=== PATIENT | male | born 1940 | race Caucasian/White ===

== ENCOUNTER 2023-10-31 19:59 | Inpatient (IN) | payer OTHER, SELFPAY ==
[2023-10-31] VITALS (7 sets, daily range): BP systolic 115–180; BP diastolic 55–90; BMI 22.9
[2023-10-31 16:11] LABS: Hematocrit 46.3 % (39.0-52.0); Hemoglobin 15.6 g/dL (13.0-18.0); Mean Corp Hgb Conc. 33.7 g/dL (33.0-37.0); Mean Corpuscular Hgb 32.3 pg (27.0-31.0); Mean Corpuscular Volume 95.9 fL (80.0-94.0); Mean Platelet Volume 9.8 fL (7.4-10.4); Platelet Count 205 10^3/uL (130-400); Red Blood Cell Count 4.83 10^6/uL (4.70-6.10); Red Cell Dist. Width 12.9 % (11.5-14.5)
[2023-10-31 16:27] LABS: ALT (SGPT) 24 U/L (0-50); AST (SGOT) 35 U/L (17-59); Albumin 4.7 g/dl (3.5-5.0); Alkaline Phosphatase 58 U/L (38-126); Blood Urea Nitrogen 19 mg/dl (9-20); Calcium 10.2 mg/dl (8.4-10.2); Carbon Dioxide 27 mmol/L (22-30); Chloride 102 mmol/L (98-107); Glucose 102 mg/dl (70-99); Potassium 4.7 mmol/L (3.5-5.1); Sodium 137 mmol/L (135-145); Total Bilirubin 3.1 mg/dl (0.2-1.3); Total Protein 7.3 g/dl (6.3-8.2); eGFR > 60.00
[2023-10-31 16:39] LABS: Troponin I 0.125 ng/ml
--- NOTE | 2023-10-31 16:49 | ED.GENMED ---
History of Present Illness
General
Chief Complaint: Chest Pain
Source: patient
Exam Limitations: none
Time Seen by Provider: 10/31/23 15:30
Nursing documentation reviewed up to this point in time: agreed with
Travel History
Have you had any contact with someone who has COVID-19?: No
Do you have any symptoms of coronavirus? Fever > 100 degrees, chills, cough, shortness of breath, sore throat, loss of taste or smell, muscle aches, or headache?: No
History of Present Illness
History of Present Illness:
Patient with history of CAD, multiple cardiac stent placements in the past, presents to ED secondary to intermittent chest pain over the past 2 weeks. Patient is an avid cyclist, who has been experiencing chest discomfort whenever he attempted to
ride his bike over the past 2 weeks. Chest pain described as achy, radiating up to his jaw, without associated shortness of breath, nausea, or diaphoresis. Chest pain would resolved gradually after he stopped cycling. On 1 other occasion, patient
had similar episode when he was outside cutting branches. Otherwise, patient denies any recent illness. Denies any recent travel or surgery.
Past History
Past History
ED Past Medical History: Other (Hypertension, status post ORIF of left hip)
Social History
Tobacco: Non-smoker
Alcohol: None
Family History
Family History: Negative Diabetes, Hypertension or CAD
Review of Systems
Review of Systems
Allergies reviewed?: Yes
All Other Systems: ROS reviewed and negative except as documented in HPI and ROS
Constitutional: Reports no symptoms
EENT: Reports no symptoms
Respiratory: Reports trouble breathing
Cardiac: Reports chest pain
ABD/GI: Reports no symptoms
: Reports no symptoms
Musculoskeletal: Reports no symptoms
Neurological: Reports no symptoms
Phy Exam
Physical Exam
Physical Exam:
Physical Exam
General: no apparent distress, not acutely ill. afebrile
Head: nc/at. eomi
Neck: supple. no meningeal signs.
Heart: s1/s2 regular rate and rhythm, no murmur. equal radial pulses.
Lungs: no acute respiratory distress. clear bilaterally
Abdomen: normal bowel sounds. not tender.
Neuro: alert and oriented. no focal neurological deficits
Skin: no rash
Psychiatric: well kept. interactive and cooperative
Extremities: no edema. no calf tenderness.
Scores
Heart Score for Chest Pain Patients
STEMI patient?: No
History: Moderately Suspicious
ECG: Normal
Age: >/= 65 years
Risk Factors: >/= 3 Risk Factors or History of CAD
Troponin: >1 - <3 x Normal Limit
Heart Score for Chest Pain Patients: 6
Heart Score Risk: 20.3% MACE over next 6 weeks
Course
Orders/Labs/Results
Orders:
Orders
10/31/23 13:00
Electrocardiogram (*1) Urgent
Reason for Study: Chest Pain
EKG- Treatment ONCE
10/31/23 Dinner
Regular
At Your Request: Full Participation
10/31/23 16:05
Complete Blood Count/No Diff Urgent
Comprehensive Metabolic Panel Urgent
Troponin I Urgent
10/31/23 17:07
PTT Urgent
10/31/23 18:16
Aspirin Chewable [Low Strength Aspirin] 243 mg PO NOW STA
10/31/23 18:17
Heparin 4,000 units IV NOW STA
Nursing to Place Non Medication Order As Directed
Physician Order: PTT 6 hours after initial start of Heparin infusion
Above order entered?: Yes
10/31/23 18:30
Heparin 51412 Units/250 ml 25,000 units in 250 ml IV PER PROTOCOL
Weight to be used for heparin protocol in kilograms (kg):: 73.7
Protocol:: Cardiac Tx/Acute Coronary
PTT Goal Range to be used:: PTT 73 to 111 seconds
Order type:: Initial
INITIAL Infusion Dose (UNITS/KG/hr) & then follow protocol:: 12 units/kg/hr
Infusion Dose in UNITS/hr & then follow protocol (UNITS/hr):: 900
INFUSION RATE in mL/hr & then follow protocol (mL/hr):: 9
PTT less than or equal to 64 seconds:: Increase rate by 200 units/hr (+ 2 mL/hr)
PTT 64.1 to 72.9 seconds:: Increase rate by 100 units/hr (+ 1 mL/hr)
PTT 73 to 111 seconds:: Target Range. No change in rate.
PTT 111.1 to 130.9 seconds:: Decrease rate by 100 units/hr (- 1 mL/hr)
PTT 131 to 199.9 seconds:: HOLD for 1 hr. Then decrease rate by 200 units/hr (- 2 mL/hr)
PTT greater than or equal to 200 seconds:: HOLD for 2 hrs & Notify Provider. Then decrease by 200 units/hr (-
2 mL/hr)
Lab follow-up:: Each change, PTT q6h until 2 consecutive are therapeutic. Then PTT
daily.
10/31/23 18:38
Admit/Transfer Patient As Directed
Co-Sign Provider:
Level of Care: Inpatient admission
Assign to:: IVU
Physician / Group: albino conner
Diagnosis: nstemi
Reason for Hospitalization: nstemi
Expected length of stay greater than two midnights?: Yes
ELOS- Estimated Length of Stay in days: 3
I certify the patient meets the requirements for IP care: Yes
Code Status As Directed
Resuscitation Status: Full Code
10/31/23 18:43
CARDIOLOGY CONSULT Routine
Consulting Provider: Evan Askew
Was physician already notified: Yes
Reason for consult: nstemi
10/31/23 19:11
Acetaminophen [Tylenol] 650 mg PO Q6HPRN PRN
Nitroglycerin Ointment [Nitro-Bid] 1 inch TOPICAL NOW STA
10/31/23 20:57
Acetaminophen [Tylenol] 650 mg PO Q4HPRN PRN
Dorzolamide HCl [Trusopt 2% Ophthalmic Solution] 1 drop BOTH EYES BID
10/31/23 20:57
VTE Contraindication Routine
VTE Mechanical Device Contraindication: Medical Contraindication
Pharmocologic Contraindication: Medical Contraindication
Comment: pt oniv heparin gtt
Heparin Protocol- PTT Orders As Directed
PTT per Heparin protocol: -Obtain CBC and baseline PTT - if not already collected.
-Obtain PTT 6 hours from start of infusion. Then, every 6 hours until 2 consecutive
PTT's are therapeutic. Then, PTT Daily.
-With each rate change, obtain PTT every 6 hours until 2 consecutive PTT's are
therapeutic. Then, PTT Daily.
Activity As Directed
Activity Level: As Tolerated
Notify MD As Directed
Notify physician if: PTT is greater than or equal to 200.
Vital Signs As Directed
Frequency: Per unit guidelines
Ot Eval And Treat Routine
Pt Eval And Treat Routine
Activity Level: As Tolerated
10/31/23 21:35
Troponin I Q6H
10/31/23 22:00
Latanoprost [Xalatan Ophthalmic Solution] 1 drop BOTH EYES HS
11/01/23 00:00
Nitroglycerin Ointment [Nitro-Bid] 1 inch TOPICAL Q6
11/01/23 02:27
Cardiovascular Evaluation IN AM
Complete Blood Count/With Diff IN AM
Comprehensive Metabolic Panel IN AM
Hgba1c [Glycohemoglobin (HgbA1c)] IN AM
Troponin I Q6H
11/01/23 06:00
Echo 2D MMode Color/Doppler IN AM
Reason for Study: nstemi
NPO
Allow oral meds: Yes
Allow clear liquids: No
NPO with Ice Chips: No
11/01/23 08:00
Aspirin Low Dose EC [Aspir Low (Enteric Coated)] 81 mg PO DAILY
Valsartan [Diovan] 160 mg PO DAILY
11/01/23 18:00
Atorvastatin [Lipitor] 20 mg PO QPM
Tamsulosin [Flomax] 0.4 mg PO QPM
11/02/23 06:00
Complete Blood Count/No Diff Q2D
Comment: notify provider: Platelet count < 130,000 or decrease by 50% from baseline
Complete Blood Count/With Diff IN AM
Comprehensive Metabolic Panel IN AM
11/03/23 06:00
Complete Blood Count/With Diff IN AM
Comprehensive Metabolic Panel IN AM
11/04/23 06:00
Complete Blood Count/No Diff Q2D
Comment: notify provider: Platelet count < 130,000 or decrease by 50% from baseline
11/06/23 06:00
Complete Blood Count/No Diff Q2D
Comment: notify provider: Platelet count < 130,000 or decrease by 50% from baseline
11/08/23 06:00
Complete Blood Count/No Diff Q2D
Comment: notify provider: Platelet count < 130,000 or decrease by 50% from baseline
11/10/23 06:00
Complete Blood Count/No Diff Q2D
Comment: notify provider: Platelet count < 130,000 or decrease by 50% from baseline
11/12/23 06:00
Complete Blood Count/No Diff Q2D
Comment: notify provider: Platelet count < 130,000 or decrease by 50% from baseline
11/14/23 06:00
Complete Blood Count/No Diff Q2D
Comment: notify provider: Platelet count < 130,000 or decrease by 50% from baseline
11/16/23 06:00
Complete Blood Count/No Diff Q2D
Comment: notify provider: Platelet count < 130,000 or decrease by 50% from baseline
Abnormal Lab Results
10/31/23
16:05
MCV 95.9 H fL
(80.0-94.0)
MCH 32.3 H pg
(27.0-31.0)
Glucose 102 H mg/dl
(70-99)
Total Bilirubin 3.1 H mg/dl
(0.2-1.3)
Troponin I 0.125 H* ng/ml
10/31/23 16:05
10/31/23 16:05
Vital Signs
Initial and Last Documented VS:
Initial Vital Signs
Temp Pulse Resp BP Pulse Ox
98.3 F 84 18 180/90 97
10/31/23 12:58 10/31/23 12:58 10/31/23 12:58 10/31/23 12:58 10/31/23 12:58
Last Documented Vital Signs
Temp Pulse Resp BP Pulse Ox
97.9 F 56 19 169/78 98
11/01/23 11:24 11/01/23 14:30 11/01/23 14:30 11/01/23 14:30 11/01/23 14:30
MDM/Problems Addressed
MDM/Problems Addressed:
History and exam concerning for ACS.
Discussed with (cardiology) via [email or web address]. Agrees with plan to admit under hospitalist service, on heparin protocol.
Pt remains chest pain free during observation in ED.
Critical care statement: A total of 30 minutes of critical care time was provided for this patient. This includes management of unstable vital signs, evaluation of the patient at bedside, reviewing the patient's pertinent medical records, discussion
with consultants, review of old EKGs and review of pertinent medical records. This time with separate from time utilized to perform the aforementioned documented procedures
*Critical Care Note
Total Time (30-74mins, 75-104mins- exclusive of procedures): 30 min
ED Attending Note
-
Portions of this chart may have been created with voice recognition software.� Occasional wrong word or��sound alike� substitutions may have occurred due to the inherent limitations of voice recognition software.
Discharge Plan
Departure
Patient Disposition: Admit
Date of Disposition: 10/31/23
Time of Disposition: 18:11
Presentation/result/management discussed w/ accepting MD/DO: Hospitalist
Discharge Problem:
Non-ST elevation MD (NSTEMI)
Interventions
Interventions:
*Risk Screen - Suicide Last Done: 10/31/23 21:10
*General Assessment Last Done: 10/31/23 12:58
*Neglect/Abuse Screening Last Done: 10/31/23 12:58
ED- Fall Risk Assessment Last Done: 10/31/23 20:07
*ED COVID-19 Vaccine History Last Done: 10/31/23 21:10
*Nursing Disposition Last Done: 10/31/23 20:43
ED- Cardiac Assessment Last Done: 10/31/23 15:48
Discharge Date and Time
Discharge Date/Time: 10/31/23 21:04
[2023-10-31 17:22] LABS: APTT 34.6 Sec (23.4-35.0)
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
[2023-10-31] MEDS: LOW STRENGTH ASPIRIN 243 MG PO (18:23)
[2023-10-31] MEDS: HEPARIN 4000 UNITS IV (18:57)
[2023-10-31] MEDS: HEPARIN 25000 UNITS/250 ML IV (18:57)
[2023-10-31] MEDS: NITRO-BID 1 INCH TOPICAL ×2 (19:26→23:16)
--- NOTE | 2023-10-31 20:53 | PTCARENOTE ---
Received pt from ED RN. Pt walked from the stretcher to our bed. Pt is AAOx3. NSR w/ BBB on the monitor. RA O2 sat 94%, lungs clear. BRPx1. Heparin gtt infusing @ 900 units/hr. Pt c/o no chest pain at this time, nitro paste placed per orders. CHG
bath provided. Pt is laying comfortable in bed with call chappell in reach.
[2023-10-31] MEDS: TRUSOPT 2% OPHTHALMIC SOLUTION 1 DROP BOTH EYES (21:35)
[2023-10-31 22:07] LABS: Troponin I 0.156 ng/ml
[2023-10-31] MEDS: XALATAN OPHTHALMIC SOLUTION BOTH EYES (22:52)
[2023-11-01] VITALS (18 sets, daily range): BP systolic 97–181; BP diastolic 41–94
[2023-11-01 02:38] LABS: % Basophils 0.5 % (0-2); % Eosinophils 2.2 % (0-6); % Immature Granulocytes 0.5 % (0-0.5); % Lymphocytes 15.9 % (20.5-51.1); % Monocytes 10.5 % (1.7-9.3); % Neutrophils 70.4 % (42.2-75.2); Absolute Eosinophils 0.2 10^3/uL (0-0.7); Absolute Lymphocytes 1.2 10^3/uL (1.2-3.4); Absolute Monocytes 0.8 10^3/uL (0.1-0.6); Absolute Neutrophils 5.1 10^3/uL (1.4-6.5); Hematocrit 42.8 % (39.0-52.0); Hemoglobin 14.5 g/dL (13.0-18.0); Mean Corp Hgb Conc. 33.9 g/dL (33.0-37.0); Mean Corpuscular Hgb 32.7 pg (27.0-31.0); Mean Corpuscular Volume 96.4 fL (80.0-94.0); Mean Platelet Volume 9.7 fL (7.4-10.4); Nucleated Red Blood Cells % 0 % (-); Platelet Count 185 10^3/uL (130-400); Red Blood Cell Count 4.44 10^6/uL (4.70-6.10); Red Cell Dist. Width 12.9 % (11.5-14.5); White Blood Cell Count 7.3 10^3/uL (4.8-10.8)
[2023-11-01 02:50] LABS: APTT 101.5 Sec (23.4-35.0)
[2023-11-01 03:09] LABS: ALT (SGPT) 25 U/L (0-50); AST (SGOT) 34 U/L (17-59); Albumin 3.9 g/dl (3.5-5.0); Alkaline Phosphatase 55 U/L (38-126); Blood Urea Nitrogen 24 mg/dl (9-20); Calcium 9.5 mg/dl (8.4-10.2); Carbon Dioxide 25 mmol/L (22-30); Chloride 108 mmol/L (98-107); Estimated Creatinine Clearance 70 ml/min; Glucose 85 mg/dl (70-99); HDL Cholesterol 46 mg/dl; LDL Cholesterol, Calculated 43 mg/dl; Potassium 4.6 mmol/L (3.5-5.1); Sodium 137 mmol/L (135-145); Total Bilirubin 2.6 mg/dl (0.2-1.3); Total Cholesterol 103 mg/dl (50-199); Total Protein 6.2 g/dl (6.3-8.2); Triglyceride 71 mg/dl (10-149); Very Low Density Lipoprotein 14 mg/dl (0-30); eGFR > 60.00
[2023-11-01 03:32] LABS: Troponin I 0.202 ng/ml
[2023-11-01] MEDS: NITRO-BID 1 INCH TOPICAL (06:07)
--- NOTE | 2023-11-01 08:09 | CON.CAR ---
Addendum entered and electronically signed by Adonis Keen MD 11/01/23 09:30:
I saw and examined the patient.
The Special Events Fundraiser's note was reviewed and I agree with the note.
Comment: Briefly, 83-year-old man past medical history of multivessel CAD with prior PCI who presents after several weeks of progressively worsening exertional chest and shoulder pain concerning for unstable angina. Symptoms only brought on with
cycling by his report. He was recommended by his primary care physician to be evaluated in [place] emergency department and found to have elevated troponin 0.125 which is uptrending, consistent with NSTEMI.
Continue aspirin, statin and heparin drip x 48 hours as medical management of NSTEMI
Resting bradycardia likely prohibits use of beta-yaneli
Currently chest pain-free, will stop Nitropaste and order as needed sublingual nitro
Tentative plan for invasive coronary angiography in the next 48 hours, will discuss with interventional list the timing of a procedure
Original Note:
Consultation
Consultation Request
Date/Time Consultation Requested: 10/31/23 at 1843
Date/Time Consultation Performed: 11/01/23 at 0810
Requesting Provider: Dr. Cerna
Performing Provider: Dr. Keen
Reason for Consultation: Elevated Troponin
Medical History
-
History of Present Illness:
Patient came to [facility] yesterday from his PCP's office with recent h/o chest pain and cardiology is now consulted. Patient has a h/o probably out of hospital cardiac arrest treated with bystander CPR in 2011 with ROSC at the scene. In patient had a
stress test followed by cath that showed LAD and RCA disease. Patient had LAD PCI and PTCA alone of Diag-3 initially and then returned electively as an outpatient for the RCA intervention 3 weeks later. Since then patient has continued with his avid
cycling and bikes 45 miles at a time. He says that he was in [place] in July and August and was cycling without chest pain. About 2 weeks ago he started to on a ride and within a mile he had pain in his jaw that radiated to his neck then
shoulders then chest. Pain resolved with rest. He tried riding again and pain recurred. He says that pain has been happening with less and less activity, but no resting pain. He was seeing his PCP for a routine office visit last night and mentioned
the chest pain and was referred to [facility]. He has been pain free since admission, but his initial Troponin was 0.125 so he was started on Heparin gtt and admitted.
PMH:
CAD
s/p 2.5 mm and 2.5 mm Xience to prox and mid LAD and PTCA alone of Diag-3 on 04/04/12
s/p 3 mm Xience to mid RCA 05/01/12
h/o probably out of hospital cardiac arrest treated with bystander CPR and ROSC 04/2012
HTN
Hyperlipidemia
Past Medical History
Past Medical History: Other (in HPI)
Past Surgical History: Cardiac (LAD and RCA PCI) and Orthopedic
Social History
Tobacco: Non-Smoker
Alcohol: None
Drug: None
Personal: Single
Living: Alone
Family History
Family History: Hypertension
Allergies / Home Medications
Allergy/AdvReac Type Severity Reaction Status Date / Time
eyedrop unknown Allergy RED EYES Uncoded 05/01/12 18:28
�Medication �Instructions �Recorded �Confirmed �Type
aspirin 81 mg tablet,delayed 81 mg PO DAILY Blood Clot 04/28/12 10/31/23 History
release Prevention/Tx
atorvastatin 20 mg tablet 20 mg PO QPM High Cholesterol 04/28/12 10/31/23 History
latanoprost 0.005 % eye drops 1 drp BOTH EYES HS Eye Condition 05/01/12 10/31/23 History
dorzolamide 2 % eye drops 1 drp BOTH EYES BID Eye Condition 10/31/23 10/31/23 History
tamsulosin 0.4 mg capsule 0.4 mg PO QPM Urinary Issue 10/31/23 10/31/23 History
valsartan 160 mg tablet 160 mg PO DAILY Blood Pressure 10/31/23 10/31/23 History
Review of Systems
-
History Source: Patient
All other systems: Negative unless noted
Physical Exam
Vital Signs
Temp Pulse Resp BP Pulse Ox
97.6 F 62 13 105/59 95
11/01/23 07:38 11/01/23 06:07 11/01/23 06:05 11/01/23 06:07 11/01/23 06:05
GEN: NAD. AAOx3
HEENT: EOMI, MMM
LUNGS: CTA B/L, no wheezes or rales
CV: Reg, no murmur
ABD: soft, BS+, NT, ND
EXT: No clubbing, cyanosis, lesions or edema B/L
NEURO: Gross non-focal
SKIN: Warm, dry and pink. No rash
Lab Results
11/01/23 02:27
11/01/23 02:27
Troponin I 0.202 ng/ml H* D 11/01/23 02:27
Impression / Plan
-
PCP: Dr. David Dasilva
Cardiology: Dr. Armas
Impression:
NSTEMI, Troponin 0.2 and trending
Chest pain
CAD
s/p 2.5 mm and 2.5 mm Xience to prox and mid LAD and PTCA alone of Diag-3 on 04/04/12
s/p 3 mm Xience to mid RCA 05/01/12
h/o probably out of hospital cardiac arrest treated with bystander CPR and ROSC 04/2012
HTN
Hyperlipidemia
Echo 04/05/12: EF 55-60%, mild MR, mild TR
Plan:
-Patient came to [facility] yesterday from his PCP's office with recent h/o chest pain and cardiology is now consulted. Patient has a h/o probably out of hospital cardiac arrest treated with bystander CPR in 2011 with ROSC at the scene. In [facility] patient had
a stress test followed by cath that showed LAD and RCA disease. Patient had LAD PCI and PTCA alone of Diag-3 initially and then returned electively as an outpatient for the RCA intervention 3 weeks later. Since then patient has continued with his
avid cycling and bikes 45 miles at a time. He says that he was in [place] in July and August and was cycling without chest pain. About 2 weeks ago he started to on a ride and within a mile he had pain in his jaw that radiated to his neck then
shoulders then chest. Pain resolved with rest. He tried riding again and pain recurred. He says that pain has been happening with less and less activity, but no resting pain. He was seeing his PCP for a routine office visit last night and mentioned
the chest pain and was referred to [facility]. He has been pain free since admission, but his initial Troponin was 0.125 so he was started on Heparin gtt and admitted.
-Troponin has trended up to 0.202 this AM. Cont to trend Troponin to peak. ECG reviewed by me shows known RBBB and LAFB. Patient has been pain free since admission. No resting pain at all even prior to admission.
-Cont Heparin gtt
-Cont outpatient dose of aspirin 81 mg daily. No previous intolerance to DAPT, he was on Effient in 2011, but is now 83.
-Talked to patient about cardiac cath and he wants to proceed. Will add to medical laboratory scientist schedule.
-Patient is not chronically on BB due to resting sinus bradycardia.
-Resume outpatient dose of valsartan 160 mg daily post-cath.
-Currently wearing Nitro-paste 1 inch q 6 hours. No DRAPER. He has not had any chest pain. Will stop Nitro-paste now.
-LDL 43. Cont outpatient dose of atorvastatin 20 mg daily.
-Consult cardiac rehab
-Check HgbA1c, pending
[2023-11-01] MEDS: ASPIR LOW (ENTERIC COATED) 81 MG PO (08:44)
[2023-11-01 09:22] LABS: Glycohemoglobin (HgbA1c) 5.7 % (4.0-5.6)
[2023-11-01 09:33] LABS: Troponin I 0.161 ng/ml
[2023-11-01 09:50] LABS: APTT 87.3 Sec (23.4-35.0)
[2023-11-01] MEDS: TRUSOPT 2% OPHTHALMIC SOLUTION 1 DROP BOTH EYES ×2 (10:45→20:44)
--- NOTE | 2023-11-01 12:10 | PTCARENOTE ---
Pt rec'd from previous RN 07:15, plans discussed with patient and care team. Pt will go to stucco laborer this afternoon, remains NPO at this time. Pt given CHG bath, trop and PTT drawn and sent this am, results noted and communicated to cardiology. PTT
WNL at 87.3, troponin peaked at 0.202. Heparin gtt continues infusing at 900 units/hr. Pt AOx3 and ambulating in room with min stby assist. Friend arrived at bedside to visit. Pt with no needs at this time, call chappell in reach.
--- NOTE | 2023-11-01 13:58 | W.PN.HOSP.TC ---
Today's Communication/Plan
-
heart cath today
Assessment / Plan
Assessment / Plan
#NSTEMI
Troponin 0.125-->0.156-->0.202-->0.161
-Consult cardiology, input appreciated
- cont [id number] mg daily, was on NTG at time of admission, with resolution of chest pain, has been stopped
-IV heparin drip per Dr Asekw
-lipid profile: chol 103/LDL 43/HDL 46
-Check chest x-ray
EKG: NSR, bifascicular block heart rate 73 bpm, QTc 449 MS
for heart cath. reviewed with pt and in room
#CAD
#Stent x 3 LAD April 2012
#Stent RCA 05/01/2012
-Continue aspirin, beta-yaenli, statin
#Chronic RBBB
#HTN�benign
169/81
Continue atenolol 50 mg p.o. daily
#HLD
-Continue atorvastatin
#Glaucoma
-Continue eyedrops
#Bph
-cont flomax
DVT prophylaxis
IV heparin drip
Full code
Anticipated Discharge: 24 - 48 hours
Subjective/Interval History
-
Date of Service: November 01, 2023
No chest pain currently, awaiting planned heart cath
Objective Data
-
Labs:
Laboratory Results
11/01/23 11/01/23 11/01/23
02:27 08:54 09:21
WBC 7.3
Hgb 14.5
Hct 42.8
Plt Count 185
APTT 101.5 H Cancelled 87.3 H
Sodium 137
Potassium 4.6
Chloride 108 H
Carbon Dioxide 25
BUN 24 H
Creatinine 0.8
Glucose 85
Calcium 9.5
Total Bilirubin 2.6 H
AST 34
ALT 25
Alkaline Phosphatase 55
Vital Signs:
Vital Signs
Temp Pulse Resp BP Pulse Ox
97.9 F 71 35 130/77 96
11/01/23 11:24 11/01/23 12:00 11/01/23 12:00 11/01/23 12:00 11/01/23 12:00
I&O
10/31/23 11/01/23 11/02/23
06:59 06:59 06:59
Intake Total 210 / 210
Balance 210 / 210
Review of Systems
-
History Source: Patient, Family ( at bedside) and Coordinated Provider
Constitutional: Reports No Symptoms; Denies Fever
EENT: Reports No Symptoms Reported
Respiratory: Reports No Symptoms
Cardiac: Reports No Symptoms; Denies Chest Pain
Genitourinary: Reports No Symptoms
Physical Exam
-
General: Well Developed, Well Nourished and No Apparent Distress
HEENT: Normocephalic, Atraumatic and Moist Mucous Membranes
Respiratory: Clear to Auscultation; Negative Wheezes, Rales or Rhonchi
Cardiac: Regular Rhythm and S1/S2
GI: Soft, Nontender and Nondistended
Genito-urinary: No Costovertebral Tender
Musculoskeletal: No Clubbing, No Cyanosis, No Edema and Other (good muscle tone)
Skin: Warm and Dry
Neuro: Awake, Alert and Oriented
--- NOTE | 2023-11-01 14:57 | PTCARENOTE ---
Bp trending up-currently 169/78, Monika Sorto notified, will give dose of Valsartan now (which was held this am). laborer prestressed concrete called to take report, pt ready to go, liquified natural gas technician now at bedside. laborer prestressed concrete will call again when ready for pt.
[2023-11-01] MEDS: DIOVAN 160 MG PO (15:02)
--- NOTE | 2023-11-01 15:30 | PTCARENOTE ---
Pt sent to cathode washer approx 15:30. arrived back on unit shortly after. Awaiting IVU bed assignment.
--- NOTE | 2023-11-01 16:00 | PTCARENOTE ---
pt received to room 2253 post cath. right radial TR band CDI. pt AAOX3, denies pain. SR on telemetry heart rate in 60s. pulses palpable. no edema. pt on room air, sat 95%. lung sounds clear. active bowel sounds. due to void. see worklist for full
nursing assessment and interventions. pt and significant other Anh updated on plan of care.
[2023-11-01] MEDS: NSS 1000 IV (16:38)
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
--- NOTE | 2023-11-01 16:55 | ITS.CL.CATH ---
Inspector Crystal - Catheterization
Cardiac Catheterization
Procedure Report:
LEFT HEART CATHETERIZATION
Date of Procedure: November 01, 2023
Referring: Dr. Dano Armas
PROCEDURES:
1. Left heart catheterization with coronary and single-plane left ventriculography
INDICATION: This is an 83-year-old gentleman with a prior history of coronary artery disease and remote stenting of the LAD and RCA. He presented to [facility] for evaluation of chest and neck discomfort that has been present with periods
of physical activity since July 2023 (if not a little before). His symptoms worsened and he presented for further evaluation. His troponin was noted to be mildly elevated peaking at 0.202 ng/mL. He is now referred for coronary angiography.
ACCESS: Right radial artery, 6 Syrian sheath
HEMODYNAMICS : (mmHg)
AO (s/d) : 139/53
LV (s/d) : 145/5
LVEDP : 13
CORONARY FINDINGS
DOMINANCE: Right
LEFT MAIN: Normal
LEFT ANTERIOR DESCENDIN% occluded at its origin. There are overlapping stents from the proximal through mid LAD. The distal LAD fills via well-developed right to left collateral. The distal LAD has only minor irregularities.
RAMUS: Large with 80% proximal stenosis
CIRCUMFLEX: The circumflex has a long 60% proximal stenosis. OM1 is a small bifurcating vessel. The mid circumflex terminates in a large OM 2 with a hazy focal 95% stenosis
RIGHT CORONARY ARTERY: 60% ostial stenosis. No pressure dampening with engagement of a 6 Syrian diagnostic catheter. The mid RCA stent has minor in-stent restenosis. The RCA beyond the stented segment has a 60% stenosis. A large well-developed
collateral to the LAD arises from an RV marginal branch there are parallel PDAs. The larger PDA branch has a hazy eccentric high-grade stenosis at its origin
VENTRICULOGRAPHY: Left ventriculography is performed in an ESCOBAR projection. The digital single-plane left ventricular ejection fraction is estimated at 50% with global hypokinesis as well as moderate anterolateral hypokinesis
RADIATION SUMMARY: Fluoro Time (min): 2.4, Dose (mGy): 207, DAP (Gy.cm2) : 17.6
Closure Device: TR band
CONCLUSIONS
1. Multivessel coronary artery disease with chronic occlusion of the ostial LAD. The distal vessel fills via well-developed right to left collaterals. There is a high-grade stenosis at the origin of a sizable ramus, OM, and PDA.
2. Low normal to mildly reduced left ventricular systolic function
RECOMMENDATIONS
1. Consult CT surgery
Copy to: Dr. Dano Armas
[2023-11-01] MEDS: LIPITOR 20 MG PO (17:20)
[2023-11-01] MEDS: FLOMAX 0.400000000000000022 MG PO (17:20)
[2023-11-01] MEDS: XALATAN OPHTHALMIC SOLUTION 1 DROP BOTH EYES (21:13)
[2023-11-01] MEDS: HEPARIN 25000 UNITS/250 ML IV (21:15)
--- NOTE | 2023-11-01 22:00 | PTCARENOTE ---
Assume care from AM RN. VSS. afebrile and no c/o pain. AAOx3. Rt TR band removed. and dressing placed. No signs of bleeding noted. NSR in the monitor. Pt was taken down for CXR and Heparin gtt restarted at 2130. SaO2 94-96% RA. Lungs, GI, GE WNL. Pt
appears comfortable in bed and call chappell within reach.
[2023-11-02] VITALS (14 sets, daily range): BP systolic 93–175; BP diastolic 50–86; PULSE 67–76
[2023-11-02 03:59] LABS: % Basophils 0.5 % (0-2); % Eosinophils 3.6 % (0-6); % Immature Granulocytes 0.4 % (0-0.5); % Lymphocytes 20.7 % (20.5-51.1); % Monocytes 12.1 % (1.7-9.3); % Neutrophils 62.7 % (42.2-75.2); Absolute Eosinophils 0.2 10^3/uL (0-0.7); Absolute Lymphocytes 1.2 10^3/uL (1.2-3.4); Absolute Monocytes 0.7 10^3/uL (0.1-0.6); Absolute Neutrophils 3.5 10^3/uL (1.4-6.5); Hematocrit 43.2 % (39.0-52.0); Hemoglobin 14.9 g/dL (13.0-18.0); Mean Corp Hgb Conc. 34.5 g/dL (33.0-37.0); Mean Corpuscular Hgb 32.7 pg (27.0-31.0); Mean Corpuscular Volume 94.9 fL (80.0-94.0); Mean Platelet Volume 9.9 fL (7.4-10.4); Nucleated Red Blood Cells % 0 % (-); Platelet Count 173 10^3/uL (130-400); Red Blood Cell Count 4.55 10^6/uL (4.70-6.10); Red Cell Dist. Width 12.8 % (11.5-14.5); White Blood Cell Count 5.6 10^3/uL (4.8-10.8)
[2023-11-02 04:13] LABS: INR 1.25; PT 15.6 Sec (11.4-14.6)
[2023-11-02 04:14] LABS: APTT 64.4 Sec (23.4-35.0)
[2023-11-02 04:37] LABS: ALT (SGPT) 20 U/L (0-50); AST (SGOT) 28 U/L (17-59); Albumin 3.7 g/dl (3.5-5.0); Alkaline Phosphatase 64 U/L (38-126); Blood Urea Nitrogen 23 mg/dl (9-20); Calcium 9.7 mg/dl (8.4-10.2); Carbon Dioxide 21 mmol/L (22-30); Chloride 107 mmol/L (98-107); Direct Bilirubin 0.1 mg/dl (0.0-0.4); Estimated Creatinine Clearance 63 ml/min; Glucose 86 mg/dl (70-99); Potassium 4.2 mmol/L (3.5-5.1); Sodium 136 mmol/L (135-145); Total Bilirubin 3.5 mg/dl (0.2-1.3); eGFR > 60.00
[2023-11-02] MEDS: TRUSOPT 2% OPHTHALMIC SOLUTION 1 DROP BOTH EYES ×2 (08:37→19:39)
[2023-11-02] MEDS: ASPIR LOW (ENTERIC COATED) 81 MG PO (08:37)
[2023-11-02] MEDS: DIOVAN 160 MG PO (08:38)
--- NOTE | 2023-11-02 09:03 | W.PN.UPDATE ---
Update Note
Progress Note Update
Patient seen this AM with Dr. Neville. Risks of the procedure was discussed with the family and patient. Consent to be obtained. Continued pre-operative work up. Surgery will be scheduled for Saturday November 04, 2023.
Blanca CABALLERO
Cardiac Surgery
--- NOTE | 2023-11-02 09:40 | W.PN.HOSP.TC ---
Today's Communication/Plan
-
for CABG 11/03
Assessment / Plan
Assessment / Plan
#NSTEMI
Troponin 0.125-->0.156-->0.202-->0.161
-Consulted cardiology, input appreciated
- cont [id number] mg daily, was on NTG at time of admission, with resolution of chest pain, has been stopped
-remains on IV heparin drip per Dr Askew
-lipid profile: chol 103/LDL 43/HDL 46
chest x-ray: No acute cardiopulmonary process.
EKG: NSR, bifascicular block heart rate 73 bpm, QTc 449 MS
for heart cath. reviewed with pt and in room
#CAD
#Stent x 3 LAD April 2012
#Stent RCA 05/01/2012
-Continue aspirin, beta-yaneli, statin
10/31 heart cath: 1. Multivessel coronary artery disease with chronic occlusion of the ostial LAD. The distal vessel fills via well-developed right to left collaterals. There is a high-grade stenosis at the origin of a sizable ramus, OM, and PDA.
2. Low normal to mildly reduced left ventricular systolic function
RECOMMENDATIONS
1. Consult CT surgery
input from CT surgery noted and appreciated, plan is for surgery on Friday 11/03
#Chronic RBBB
#HTN�benign
152/79
Continue atenolol 50 mg p.o. daily
#HLD
-Continue atorvastatin
#Glaucoma
-Continue eyedrops
#Bph
-cont flomax
DVT prophylaxis
IV heparin drip
Full code
Anticipated Discharge: > 48 hours
Subjective/Interval History
-
Date of Service: November 02, 2023
No chest pain
Objective Data
-
Labs:
Laboratory Results
05/07/2711/02/23 11/02/23
03:36 06:00 10:24
WBC 5.6
Hgb 14.9
Hct 43.2
Plt Count 173
PT 15.6 H Cancelled
INR 1.25 Cancelled
APTT 64.4 H Pending
Sodium 136
Potassium 4.2
Chloride 107
Carbon Dioxide 21 L
BUN 23 H
Creatinine 0.9
Glucose 86
Calcium 9.7
Total Bilirubin 3.5 H
AST 28
ALT 20
Alkaline Phosphatase 64
Vital Signs:
Vital Signs
Temp Pulse Resp BP Pulse Ox
97.9 F 66 20 152/79 94
11/02/23 07:46 11/02/23 08:00 11/02/23 07:46 11/02/23 08:38 11/02/23 08:45
I&O
11/01/23 11/02/23 11/03/23
06:59 06:59 06:59
Intake Total 210 / 210 810 / 810
Output Total 850 / 850 400 / 400
Balance 210 / 210 -40 / -40 -400 / -400
Review of Systems
-
History Source: Patient, Family ( at bedside) and Coordinated Provider
Constitutional: Reports No Symptoms; Denies Fever
EENT: Reports No Symptoms Reported
Respiratory: Reports No Symptoms
Cardiac: Reports No Symptoms; Denies Chest Pain
Genitourinary: Reports No Symptoms
Physical Exam
-
General: Well Developed, Well Nourished and No Apparent Distress
HEENT: Normocephalic, Atraumatic and Moist Mucous Membranes
Respiratory: Clear to Auscultation; Negative Wheezes, Rales or Rhonchi
Cardiac: Regular Rhythm and S1/S2
GI: Soft, Nontender and Nondistended
Genito-urinary: No Costovertebral Tender
Musculoskeletal: No Clubbing, No Cyanosis, No Edema and Other (good muscle tone)
Skin: Warm and Dry
Neuro: Awake, Alert and Oriented
--- NOTE | 2023-11-02 11:30 | CM ---
Chart reviewed. Patient is independent of ADLS, lives with his in a 2 [address], 1st floor set up, 2 KENDRICK, 0 DME. Reviewed preoperative and postoperative instructions and restrictions, along with showering instructions. Gave patient the Cardiac
Surgery Book. Patient is agreeable to a home visit by the CT Transitional RN. Plan is for the patient to return home with CT Transitional RN. CM to follow
--- NOTE | 2023-11-02 12:07 | W.PN.UPDATE ---
Update Note
Progress Note Update
Patient was rescheduled for surgery TOMORROW NOVEMBER 03, 2023. Pre-op orders placed. Valsartan DC. Continue heparin gtt until on-call to OR tomorrow.
Procedure Type:�Isolated CABG
PERIOPERATIVE OUTCOME ESTIMATE %
Operative Mortality 3.13%
Morbidity & Mortality 8.48%
Stroke 1.23%
Renal Failure 1.28%
Reoperation 3.45%
Prolonged Ventilation 4.07%
Deep Sternal Wound Infection 0.069%
Long Hospital Stay (>14 days) 6.4%
Short Hospital Stay (<6 days)* 32.2%
Clinical Summary
Planned Surgery: Isolated CABG, Urgent, First cardiovascular surgery
Demographics: 83 year old, White, male, 72.4kg, 178cm, BMI: 22.8 kg/m�
Lab Values: Creatinine: 0.9 mg/dL, Hematocrit: 43.2%, WBC Count: 5.6 10�/�L, Platelet Count: 807424 cells/�L
PreOp Medications: ANGELO Inhibitors/ARBs <=48 hrs
Substance Abuse: Never smoker
Risk Factors / Comorbidities: Hypertension
Cardiac Status: Acute heart failure, NYHA Class I
Coronary Artery Disease: 3 vessels diseased, Proximal LAD Stenosis >=70%, Non-ST Elevation NE, NE: 8 to 21 Days
Valve Disease: Mild TR
[2023-11-02 12:18] LABS: APTT 62.8 Sec (23.4-35.0)
--- NOTE | 2023-11-02 12:43 | W.PN.CARDCBS ---
Addendum entered and electronically signed by Adonis Keen MD 11/02/23 15:21:
I saw and examined the patient.
The University Manager's note was reviewed and I agree with the note.
Comment: Briefly, 83-year-old man past medical history of multivessel CAD with prior PCI who presents after several weeks of progressively worsening exertional chest and shoulder pain concerning for unstable angina. Symptoms only brought on with
cycling by his report. He was recommended by his primary care physician to be evaluated in [place] emergency department and found to have elevated troponin 0.125 which is uptrending, consistent with NSTEMI.
Underwent invasive coronary angiography on 11/01/2023 which showed progression of his known coronary disease including occlusion of his LAD
Transthoracic echocardiogram showed newly reduced left ventricular function, EF 45%, with new LAD territory wall motion abnormality
Continue medical therapy with aspirin/statin/beta-yaneli - post-op would tentatively add Plavix and resume home ARB
Undergoing evaluation by CT surgery, tentative plan for CABG later this week
Original Note:
Today's Communication / Plan
-
CT surgery evaluating
Impression / Plan
-
PCP: Dr. David Dasilva
Cardiology: Dr. Armas
Impression:
NSTEMI, peak Troponin 0.2
Newly diagnosed ICM EF 45% by echo 11/01/23
Chest pain
CAD
s/p 2.5 mm and 2.5 mm Xience to prox and mid LAD and PTCA alone of Diag-3 on 04/04/12
s/p 3 mm Xience to mid RCA 05/01/12
MV CAD with [employer] ostial LAD, high-grade stenosis at the origin of a sizable ramus, OM, and PDA by cath 11/01/23
h/o probably out of hospital cardiac arrest treated with bystander CPR and ROSC 04/2012
HTN
Hyperlipidemia
Echo 04/05/12: EF 55-60%, mild MR, mild TR
Echo 11/01/23: EF 45-50%, hypokinesis of the mid to distal anterior wall and anteroseptum as well as apical cap, mild TR with PAP 35-40 mmHg
Plan:
-Patient was found to have MV CAD by cath 11/01/23 and is being evaluated by CT surgery team.
-Troponin peaked at 0.2, but EF is newly reduced at 45% by echo 11/01/23
-LVEDP 13 and no evidence of acute HF.
-Outpatient dose of valsartan 160 mg daily is on hold in anticipation of CABG later this week.
-Patient was not taking a BB prior to admission due to resting sinus bradycardia. Post-CABG will try to add low dose Coreg or Toprol XL
-No chest pain on Heparin gtt
-LDL 43. Cont outpatient dose of atorvastatin 20 mg daily.
-HgbA1c is 5.7% which is consistent with prediabetes
HPI: Patient came to [facility] yesterday from his PCP's office with recent h/o chest pain and cardiology is now consulted. Patient has a h/o probably out of hospital cardiac arrest treated with bystander CPR in 2011 with ROSC at the scene. In patient
had a stress test followed by cath that showed LAD and RCA disease. Patient had LAD PCI and PTCA alone of Diag-3 initially and then returned electively as an outpatient for the RCA intervention 3 weeks later. Since then patient has continued with
his avid cycling and bikes 45 miles at a time. He says that he was in [place] in July and August and was cycling without chest pain. About 2 weeks ago he started to on a ride and within a mile he had pain in his jaw that radiated to his neck
then shoulders then chest. Pain resolved with rest. He tried riding again and pain recurred. He says that pain has been happening with less and less activity, but no resting pain. He was seeing his PCP for a routine office visit last night and
mentioned the chest pain and was referred to [facility]. He has been pain free since admission, but his initial Troponin was 0.125 so he was started on Heparin gtt and admitted.
Progress Note - Tooling Supervisor
Subjective
Date of Service: November 02, 2023
No chest pain this admission
Objective
Labs:
11/02/23 03:36
11/02/23 03:36
Labs
Hgb 14.9 g/dL (13.0-18.0) 11/02/23 03:36
Hct 43.2 % (39.0-52.0) 11/02/23 03:36
Plt Count 173 10^3/uL (130-400) 11/02/23 03:36
PT Cancelled 11/02/23 06:00
INR Cancelled 11/02/23 06:00
APTT 62.8 Sec (23.4-35.0) H 11/02/23 11:47
Sodium 136 mmol/L (135-145) 11/02/23 03:36
Potassium 4.2 mmol/L (3.5-5.1) 11/02/23 03:36
BUN 23 mg/dl (9-20) H 11/02/23 03:36
Creatinine 0.9 mg/dL (0.7-1.3) 11/02/23 03:36
Glucose 86 mg/dl (70-99) 11/02/23 03:36
Troponins
10/31/23 10/31/23 11/01/23
16:05 21:35 02:27
Troponin I 0.125 H* 0.156 H* 0.202 H* D
11/01/23 11/01/23
08:54 13:00
Troponin I 0.161 H* Cancelled
Vital Signs and I&O:
Vital Signs
Temp Pulse Resp BP Pulse Ox
97.5 F 66 20 152/79 96
11/02/23 11:41 11/02/23 08:00 11/02/23 11:41 11/02/23 08:38 11/02/23 11:41
Vital Signs
Temp Pulse Resp BP Pulse Ox
97.5 F 66 20 152/79 96
11/02/23 11:41 11/02/23 08:00 11/02/23 11:41 11/02/23 08:38 11/02/23 11:41
Intake & Output
10/31/23 11/01/23 11/02/23 11/03/23
06:59 06:59 06:59 06:59
Intake Total 210 / 210 810 / 810
Output Total 850 / 850 400 / 400
Balance 210 / 210 -40 / -40 -400 / -400
Physical Exam
Physical Exam
GEN: AAOx3
HEENT: MMM
LUNGS: No audible wheeze
CV: SR
ABD:ND
EXT: No edema B/L
NEURO: Gross non-focal
SKIN: No rash
[2023-11-02] MEDS: FLOMAX 0.400000000000000022 MG PO (19:39)
[2023-11-02] MEDS: LIPITOR 20 MG PO (19:39)
--- NOTE | 2023-11-02 20:17 | PTCARENOTE ---
Pt edenied any discomfort, up walking in halls. Telemetry shows sinuis rhythm with RBBB. Report given to CVOR, plan for CVOR prep tonight.
[2023-11-02] MEDS: HEPARIN 25000 UNITS/250 ML IV (20:18)
[2023-11-02 20:29] LABS: APTT 106.6 Sec (23.4-35.0)
[2023-11-02] MEDS: XALATAN OPHTHALMIC SOLUTION 1 DROP BOTH EYES (21:26)
--- NOTE | 2023-11-02 22:09 | PTCARENOTE ---
assumed care of patient @ 1999. received pt from IVU, ambulatory with IV pole. Assisted pt to bed, clipped and washed with CHG soap. pt resting comfortably with call chappell within reach
[2023-11-03] VITALS (15 sets, daily range): BP systolic 102–176; BP diastolic 56–83; BMI 22.6
[2023-11-03 02:34] LABS: % Basophils 0.7 % (0-2); % Eosinophils 3.1 % (0-6); % Immature Granulocytes 0.3 % (0-0.5); % Lymphocytes 22.4 % (20.5-51.1); % Neutrophils 62.5 % (42.2-75.2); Absolute Eosinophils 0.2 10^3/uL (0-0.7); Absolute Lymphocytes 1.3 10^3/uL (1.2-3.4); Absolute Monocytes 0.6 10^3/uL (0.1-0.6); Absolute Neutrophils 3.6 10^3/uL (1.4-6.5); Hematocrit 43.6 % (39.0-52.0); Hemoglobin 15.2 g/dL (13.0-18.0); Mean Corp Hgb Conc. 34.9 g/dL (33.0-37.0); Mean Corpuscular Hgb 32.1 pg (27.0-31.0); Mean Platelet Volume 9.8 fL (7.4-10.4); Nucleated Red Blood Cells % 0 % (-); Platelet Count 176 10^3/uL (130-400); Red Blood Cell Count 4.74 10^6/uL (4.70-6.10); Red Cell Dist. Width 12.9 % (11.5-14.5); White Blood Cell Count 5.8 10^3/uL (4.8-10.8)
[2023-11-03 02:49] LABS: APTT 156.9 Sec (23.4-35.0)
[2023-11-03 03:37] LABS: ALT (SGPT) 23 U/L (0-50); AST (SGOT) 28 U/L (17-59); Alkaline Phosphatase 66 U/L (38-126); Blood Urea Nitrogen 21 mg/dl (9-20); Calcium 9.6 mg/dl (8.4-10.2); Carbon Dioxide 27 mmol/L (22-30); Chloride 106 mmol/L (98-107); Estimated Creatinine Clearance 70 ml/min; Glucose 98 mg/dl (70-99); Sodium 137 mmol/L (135-145); Total Bilirubin 2.5 mg/dl (0.2-1.3); Total Protein 6.4 g/dl (6.3-8.2); eGFR > 60.00
[2023-11-03] MEDS: MAGNESIUM OXIDE 500 MG PO (05:43)
[2023-11-03] MEDS: LOPRESSOR 25 MG PO (05:44)
[2023-11-03] MEDS: PROTONIX 40 MG PO (05:46)
[2023-11-03] MEDS: BACTROBAN 2% OINTMENT 1 APPLIC NASAL ×2 (05:47→19:30)
--- NOTE | 2023-11-03 06:26 | PTCARENOTE ---
CTPA Tsillina notified of BP difference R>L ~ 20 points systolic
--- NOTE | 2023-11-03 08:09 | W.PN.HOSP.TC ---
Today's Communication/Plan
-
for CABG today
Assessment / Plan
Assessment / Plan
#NSTEMI
Troponin 0.125-->0.156-->0.202-->0.161
-Consulted cardiology, input appreciated
- cont Aspirin 81 mg daily, was on NTG at time of admission, with resolution of chest pain, has been stopped
-remains on IV heparin drip until dc by surgery
-lipid profile: chol 103/LDL 43/HDL 46
chest x-ray: No acute cardiopulmonary process.
EKG: NSR, bifascicular block heart rate 73 bpm, QTc 449 MS
UA ordered, results pending
#CAD
#Stent x 3 LAD April 2012
#Stent RCA 05/01/2012
-Continue aspirin, beta-yaneli, statin
10/31 heart cath: 1. Multivessel coronary artery disease with chronic occlusion of the ostial LAD. The distal vessel fills via well-developed right to left collaterals. There is a high-grade stenosis at the origin of a sizable ramus, OM, and PDA.
2. Low normal to mildly reduced left ventricular systolic function
RECOMMENDATIONS
1. Consult CT surgery
input from CT surgery noted and appreciated, plan is for surgery today
#Chronic RBBB
#HTN�benign
176/71
Continue atenolol 50 mg p.o. daily
#HLD
-Continue atorvastatin
#Glaucoma
-Continue eyedrops
#Bph
-cont flomax
DVT prophylaxis
IV heparin drip
Full code
Anticipated Discharge: > 48 hours
Subjective/Interval History
-
Date of Service: November 03, 2023
Awaiting surgical intervention for today
Objective Data
-
Labs:
Laboratory Results
11/02/23 11/03/23
20:12 02:27
WBC 5.8
Hgb 15.2
Hct 43.6
Plt Count 176
APTT 106.6 H 156.9 H*
Sodium 137
Potassium 4.0
Chloride 106
Carbon Dioxide 27
BUN 21 H
Creatinine 0.8
Glucose 98
Calcium 9.6
Total Bilirubin 2.5 H
AST 28
ALT 23
Alkaline Phosphatase 66
Vital Signs:
Vital Signs
Temp Pulse Resp BP Pulse Ox
98.3 F 61 16 176/71 96
11/03/23 03:00 11/03/23 06:00 11/03/23 03:00 11/03/23 05:49 11/03/23 03:00
I&O
11/02/23 11/03/23 11/04/23
06:59 06:59 06:59
Intake Total 810 / 810 720 / 720
Output Total 850 / 850 700 / 700
Balance -40 / -40
Review of Systems
-
History Source: Patient and Coordinated Provider
Constitutional: Reports No Symptoms; Denies Fever
EENT: Reports No Symptoms Reported
Respiratory: Reports No Symptoms
Cardiac: Reports No Symptoms; Denies Chest Pain
Genitourinary: Reports No Symptoms
Physical Exam
-
General: Well Developed, Well Nourished and No Apparent Distress
HEENT: Normocephalic, Atraumatic and Moist Mucous Membranes
Respiratory: Clear to Auscultation; Negative Wheezes, Rales or Rhonchi
Cardiac: Regular Rhythm and S1/S2
GI: Soft, Nontender and Nondistended
Genito-urinary: No Costovertebral Tender
Musculoskeletal: No Clubbing, No Cyanosis, No Edema and Other (good muscle tone)
Skin: Warm and Dry
Neuro: Awake, Alert and Oriented
--- NOTE | 2023-11-03 08:42 | W.CVOR.SURPR ---
CVOR Surgeon Immed Pre Op
-
I have examined this patient prior to performance of the scheduled procedure.
The patient's condition is unchanged from the time of the dictated/written History and
Physical and the patient is able to undergo the scheduled procedure.
--- NOTE | 2023-11-03 08:55 | PTCARENOTE ---
Heparin drip stopped and pt transferred to CVOR via bed.
--- NOTE | 2023-11-03 09:08 | CM ---
pt in OR today, cm to follow.
[2023-11-03 09:39] LABS: ACT+ - POC 115 Seconds (82-134)
[2023-11-03 09:41] LABS: B.E. - POC -0.8 mmol/L; Glucose - POC 112 mg/dl (65-99); HCO3 - POC 24 mmol/L (21-29); Hematocrit - POC 42 % PCV (42-52); Hemodilution- POC Yes; Hemoglobin Calculated - POC 14.3; Ionized Calcium - POC 1.24 mmol/L (1.12-1.27); O2 Saturation %Calculated-POC 99.9 5 (92-96); PCO2 - POC 39 mmHg (35-45); PO2 - POC 347 mmHg (80-100); Potassium - POC 3.7 mmol/L (3.6-5.0); Sodium - POC 143 mmol/L (135-145)
[2023-11-03 10:26] LABS: Urine Albumin Negative (Neg - Trace); Urine Bilirubin Negative (Negative); Urine Character Clear (Clear); Urine Color Yellow; Urine Glucose Negative (Negative); Urine Ketone Negative (Negative); Urine Leukocyte Trace (Negative); Urine Nitrite Negative (Negative); Urine Occult Blood Negative (Negative); Urine Urobilinogen Negative (Neg - 1+)
[2023-11-03 10:48] LABS: ACT+ - POC 711 Seconds (82-134)
[2023-11-03 10:49] LABS: Urine Bacteria Moderate (Negative); Urine Red Blood Cell 0-2 /HPF (0-2)
[2023-11-03 10:50] LABS: Urine Squamous Cell 0-2 /LPF (Few); Urine Urothelial Cell 0-2 /LPF (FEW)
[2023-11-03 11:12] LABS: B.E. - POC 0.1 mmol/L; Glucose - POC 100 mg/dl (65-99); HCO3 - POC 25 mmol/L (21-29); Hematocrit - POC 32 % PCV (42-52); Hemodilution- POC Yes; Hemoglobin Calculated - POC 10.8; Ionized Calcium - POC 1.05 mmol/L (1.12-1.27); PCO2 - POC 43 mmHg (35-45); PO2 - POC 385 mmHg (80-100); Potassium - POC 4.4 mmol/L (3.6-5.0); Sodium - POC 142 mmol/L (135-145); pH - POC 7.38 (7.35-7.45)
[2023-11-03 11:18] LABS: ACT+ - POC 614 Seconds (82-134)
[2023-11-03 11:49] LABS: B.E. - POC -0.4 mmol/L; Glucose - POC 134 mg/dl (65-99); HCO3 - POC 25 mmol/L (21-29); Hematocrit - POC 32 % PCV (42-52); Hemodilution- POC Yes; Hemoglobin Calculated - POC 10.9; Ionized Calcium - POC 1.12 mmol/L (1.12-1.27); O2 Saturation %Calculated-POC 99.9 5 (92-96); PCO2 - POC 44 mmHg (35-45); PO2 - POC 327 mmHg (80-100); Potassium - POC 4.3 mmol/L (3.6-5.0); Sodium - POC 141 mmol/L (135-145); pH - POC 7.37 (7.35-7.45)
[2023-11-03 11:52] LABS: ACT+ - POC 507 Seconds (82-134)
[2023-11-03 12:32] LABS: ACT+ - POC 398 Seconds (82-134)
[2023-11-03 12:33] LABS: B.E. - POC -1.2 mmol/L; Glucose - POC 135 mg/dl (65-99); HCO3 - POC 23 mmol/L (21-29); Hematocrit - POC 31 % PCV (42-52); Hemodilution- POC Yes; Hemoglobin Calculated - POC 10.6; O2 Saturation %Calculated-POC 99.9 5 (92-96); PCO2 - POC 34 mmHg (35-45); PO2 - POC 275 mmHg (80-100); Potassium - POC 3.9 mmol/L (3.6-5.0); Sodium - POC 143 mmol/L (135-145); pH - POC 7.43 (7.35-7.45)
[2023-11-03 12:45] LABS: ACT+ - POC 574 Seconds (82-134)
[2023-11-03 13:11] LABS: ACT+ - POC 101 Seconds (82-134)
[2023-11-03 13:19] LABS: B.E. - POC -2.1 mmol/L; Glucose - POC 118 mg/dl (65-99); HCO3 - POC 22 mmol/L (21-29); Hematocrit - POC 31 % PCV (42-52); Hemodilution- POC Yes; Hemoglobin Calculated - POC 10.5; Ionized Calcium - POC 1.35 mmol/L (1.12-1.27); O2 Saturation %Calculated-POC 99.9 5 (92-96); PCO2 - POC 34 mmHg (35-45); PO2 - POC 322 mmHg (80-100); Potassium - POC 3.7 mmol/L (3.6-5.0); Sodium - POC 144 mmol/L (135-145); pH - POC 7.42 (7.35-7.45)
--- NOTE | 2023-11-03 13:24 | CON.INTV ---
Consultation
Consultation Request
Date/Time Consultation Requested: 11/03/2023
Date/Time Consultation Performed: 11/03/2023
Requesting Provider:
Performing Provider: Dr. Abel Conteh
Reason for Consultation: Status post coronary artery bypass
Medical History
-
History of Present Illness:
83-year-old man with past medical history significant for coronary artery disease post stents in 2011, hypertension, hyperlipidemia, chronic right bundle branch block and glaucoma presented to the emergency room on 10/31/2023 with chest pain for 2
weeks. He was found to have elevated troponins in the emergency room. Diagnosed with a non-ST elevation myocardial infarction. Cardiac catheterization demonstrated multivessel coronary artery disease. Subsequently, evaluated by CT surgery. He
was deemed candidate for revascularization.
Coronary artery bypass underwent on 11/03/[address] Neville.
Patient currently in the critical care unit. Intubated and on mechanical ventilation. Sedated.
Chest tube in place.
Past Medical History
Past Medical History: Other (See assessment and plan section.)
Social History
Tobacco: Non-smoker
Alcohol: None
Drug: None
Personal:
Living: With Family
Family History
Family History: Unable to Obtain
Allergies / Home Medications
Allergies
Allergy/AdvReac Type Severity Reaction Status Date / Time
eyedrop unknown Allergy RED EYES Uncoded 05/01/12 18:28
Home Medications
�Medication �Instructions �Recorded �Confirmed �Last Taken �Type
aspirin 81 mg tablet,delayed 81 mg PO DAILY Blood Clot 04/28/12 10/31/23 10/31/23 History
release Prevention/Tx
atorvastatin 20 mg tablet 20 mg PO QPM High Cholesterol 04/28/12 10/31/23 10/30/23 History
latanoprost 0.005 % eye drops 1 drp BOTH EYES HS Eye Condition 05/01/12 10/31/23 10/30/23 History
dorzolamide 2 % eye drops 1 drp BOTH EYES BID Eye Condition 10/31/23 10/31/23 10/31/23 History
tamsulosin 0.4 mg capsule 0.4 mg PO QPM Urinary Issue 10/31/23 10/31/23 10/30/23 History
valsartan 160 mg tablet 160 mg PO DAILY Blood Pressure 10/31/23 10/31/23 10/31/23 History
Review of Systems
-
Unable to Obtain full review of systems at this time due to: Patient Intubation
Vitals / Labs / Diagnostic Testing
Vital Signs
Temp Pulse Resp BP Pulse Ox
98.3 F 61 16 176/71 96
11/03/23 03:00 11/03/23 06:00 11/03/23 03:00 11/03/23 05:49 11/03/23 03:00
Laboratory Results
11/02/23 11/02/23 11/03/23
19:51 20:12 02:27
APTT Cancelled 106.6 H 156.9 H*
Diagnostic Testing:
Physical Exam
-
HEENT: Normocephalic and Other (ET tube in place without secretions)
Cardiovascular: S1/S2
Respiratory: Clear, Non-Labored Respirations and Other (Sternotomy incision is dressed.)
GI: Soft
Neurology: Other (Sedated, mechanical ventilation)
General: Comfortable
Assessment
-
Status post coronary artery bypass 11/03/2023
Postoperative mechanical ventilation
Postoperative anemia
-Conditions present prior admission:
Prior history of coronary disease with a stent in 2011
Hypertension
Hypercholesterolemia
Assessment and plan:
He is doing well postop-currently on mechanical ventilation and appears comfortable.
ABG reviewed: Adequate oxygenation on ventilation.
Continue SIMV mode with no change
Spontaneous breathing trial per protocol once sedation wears off.
Anemia noted-no evidence of acute bleeding
Follow H&H serially
Hemodynamics -currently off vasoactive drugs.
Continue to follow hemodynamics via PA catheter.
Arterial line in place.
Renal function normal.
Gonzáles urinary output.
Chest tube with no excessive drainage-no air leak.
Chest x-ray reviewed: With no pneumothorax or fluid collections.
Remain nothing by mouth
Head of the bed elevation
Glycemic control per protocol
DVT prophylaxis when safe from the surgical perspective.
Critical care statement: A total of 32 minutes of critical care time was provided for this patient today. This includes management of unstable vital signs, evaluation of the patient at bedside, reviewing the patient's pertinent medical records
including ventilator settings, arterial blood gases, radiographs, microbiology, laboratory evaluations and discussion with primary team, critical care nursing, and respiratory therapy.
--- NOTE | 2023-11-03 13:40 | W.PN.CT.SURG ---
CT Surgery Operative Note
-
Pre-op Diagnosis: CAD
nstemi
Post-op Diagnosis: Same
Procedure: Cabg x 5, on pump
ty- lad
svg - pda/pvbr
svg- om
svg- ramus
laal #40 clip
revh
rsf
Primary Surgeon: Highbloom
Assisting Surgeons: Pack - leg
Murt - chest
Specimen: None
Cultures: None
Complications / Blood Loss: None
Findings: Nick with EF 50, post revasc no new wma
good conduits
poor target vessels with severe calcific disease, no free area for distal anastamosis
gisselle without clot, completely occluded without residual flow or pouch post clip
[2023-11-03 14:21] LABS: Glucose - Point of Care 112 mg/dl (70-99)
[2023-11-03] MEDS: ALBUMIN 5% 250 IV ×2 (14:21→15:34)
[2023-11-03 14:33] LABS: B.E. -3.5 mmol/L; HCO3 21.5 mmol/L (21-28); Hematocrit 38.9 % (39.0-52.0); Hemoglobin 13.4 g/dL (13.0-18.0); Ionized Calcium 1.25 mMOL/L (1.15-1.33); PCO2 38 mmHg (35-48); PO2 144 mmHg (83-108); Platelet Count 125 10^3/uL (130-400); Potassium 3.6 mMOL/L (3.5-5.1); Sodium 137 mMOL/L (136-145); pH 7.36 (7.35-7.45)
[2023-11-03 14:34] LABS: O2 Therapy VENT
--- NOTE | 2023-11-03 14:39 | PTCARENOTE ---
Received pt from CVOR at 1410; pt intubated and sedated; A/V paced on monitor and VSS; Epicardial wires set to DDD rate70; RIJ Cordis/SLIC, Right A-line, PIV x1 all lines leveled and zeroed; Insulin, Levo and Precedex infusing see flow sheet for
details; Lungs diminished; ET Tube size 8 and 24 @lip; SIMV 60%/500;14/5; CT x2 to -20 wall suction no air leak and no crepitus noted; hypoactive bowel sounds; Gonzáles catheter draining clear yellow urine; palpable pulses throughout; no edema noted;
all surgical sites C/D/I; see nursing documentation for further details.
[2023-11-03 14:42] LABS: INR 1.49; PT 18.1 Sec (11.4-14.6)
[2023-11-03 14:43] LABS: APTT 34.8 Sec (23.4-35.0)
[2023-11-03] MEDS: KCL 50 IV ×2 (14:46→16:08)
[2023-11-03] MEDS: ANCEF 10 IV ×2 (14:49)
[2023-11-03] MEDS: TRUSOPT 2% OPHTHALMIC SOLUTION BOTH EYES (14:49)
[2023-11-03] MEDS: NSS 500 IV (14:49)
[2023-11-03] MEDS: TYLENOL PO (14:50)
[2023-11-03 14:52] LABS: Blood Urea Nitrogen 17 mg/dl (9-20); Estimated Creatinine Clearance 79 ml/min; Glucose 114 mg/dl (70-99); Magnesium 2.1 mg/dl (1.6-2.3)
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
[2023-11-03] MEDS: DILAUDID 0.25 MG IV (15:23)
[2023-11-03 15:36] LABS: Glucose - Point of Care 93 mg/dl (70-99)
[2023-11-03 15:59] LABS: Glucose - Point of Care 95 mg/dl (70-99)
--- NOTE | 2023-11-03 15:59 | PTCARENOTE ---
CV FANS CLERK at bedside, adjusted temporary pacer setting to VVI 45/12/0.8; Sinus Bradycardia with Right BBB and VSS; Levo, Insulin and Precedex infusing see flow sheet for details.
--- NOTE | 2023-11-03 16:00 | CM ---
pt in OR today, cm to follow.
[2023-11-03] MEDS: NEURONTIN PO (16:17)
[2023-11-03] MEDS: PACERONE PO ×2 (16:17→22:05)
--- NOTE | 2023-11-03 16:59 | PTCARENOTE ---
Respiratory at bedside pt placed on CPAP.
--- NOTE | 2023-11-03 17:07 | W.PN.UPDATE ---
Addendum entered and electronically signed by FEDERICO Kee 11/04/23 06:51:
83 ye3ar old male admitted 10/30 with NSTEMI and scheduled for CABG 11/[address] Neville
Original Note:
Update Note
Progress Note Update
83 year old male, electively admitted 11/[address] Neville
IV fluids: 1500
U.O.:� 500
Blood:� none
Wires:� 2A & 2V
Inotropes:� none
Pressors:� none
Sedatives:� precedex
�
NEURO: sedated on Precedex, pupils +2mm B/L
RESP: #8OT @24cm> 500/60%/14. Lungs clear B/L. 1 mediastinal and L pleural (60cc on arrival) chest tubes to -20cm suction. Sanguineous drainage
CV: RRR +S1, S2, no S3, no�rub, no murmur. Dermabond to median sternotomy. RIJ w/[place]
ABD: round, soft, no BS
EXT: no edema, +2/4 DP pulses B/L, no femoral bruit, RLE ANGELO wrap intact; left radial A-line intact
: Gonzáles with clear yellow urine
�
A/P: POD #0 s/p CABG x 5 WHALEN-LAD; SVG- PDA & PVBR; SVG-OM; SVG-RI (y off SVG-OM)
EDUARDO: EF�55%. Mild-moderate MR, mild TR
- wean and extubate
# CAD
- will need ASA/Plavix, statin and low dose beta-yaneli
# HTN
-resume Valsartan as needed for HTN
�
# thrombocytopenia-expected s/p CABG
- platelets 125k
- trend CBC
�
# glaucoma
- resume Dorzolamide and latanoprost eye drops
# BPH
- resume Flomax as BP permits
[2023-11-03 17:10] LABS: Glucose - Point of Care 113 mg/dl (70-99)
[2023-11-03] MEDS: ASPIR LOW (ENTERIC COATED) PO (17:33)
[2023-11-03 17:36] LABS: B.E. -5.1 mmol/L; HCO3 19.9 mmol/L (21-28); Ionized Calcium 1.24 mMOL/L (1.15-1.33); PCO2 36 mmHg (35-48); PO2 140 mmHg (83-108); Potassium 4.6 mMOL/L (3.5-5.1); Sodium 138 mMOL/L (136-145); pH 7.35 (7.35-7.45)
[2023-11-03] MEDS: LIPITOR PO (17:36)
--- NOTE | 2023-11-03 17:46 | PTCARENOTE ---
ABGs reviewed with CVNP; respiratory at bedside and pt extubated.
--- NOTE | 2023-11-03 17:51 | RESPNOTE ---
Patient extubated to a 6L nasal cannula following CPAP trial and ABG. Incentive spirometry instruction completed
[2023-11-03 18:04] LABS: Glucose - Point of Care 109 mg/dl (70-99)
[2023-11-03 18:09] LABS: Hematocrit 38.5 % (39.0-52.0); Hemoglobin 13.4 g/dL (13.0-18.0); Platelet Count 141 10^3/uL (130-400)
[2023-11-03] MEDS: OFIRMEV 100 IV (18:26)
[2023-11-03 18:59] LABS: Glucose - Point of Care 96 mg/dl (70-99)
[2023-11-03] MEDS: LOW STRENGTH ASPIRIN 81 MG PO (18:59)
[2023-11-03] MEDS: TRUSOPT 2% OPHTHALMIC SOLUTION 1 DROP BOTH EYES (19:30)
[2023-11-03] MEDS: FLEXERIL 5 MG PO (19:31)
[2023-11-03] MEDS: SENOKOT-S 1 TABLET PO (19:31)
--- NOTE | 2023-11-03 20:00 | PTCARENOTE ---
[facility]; pt resting comfortably in bed with significant other at bedside; pt is AAOx4 and states pain is 4/10, see MAR for pain management; heart sounds audible, rub present, temp epicardial pacing wires set to VVI with rate of 45,
MA of 12, and Mv of 0.8, no edema noted, radial and DP pulses palpable; lungs sounds diminished at bases, spo2 99 on 6LNC, left pleural and mediastinal CT to -20 wall suction, no air leaks, no tidaling, no crepitus; hypoactive BSx4, abdomen soft non
tender; pt voiding clear yellow urine via combs catheter; right IJ cordis, right A-line, and PIV all maintained, leveled, and zeroed; surgical sites maintained; Levophed and insulin infusing. call chappell within reach; will continue to monitor.
[2023-11-03] MEDS: ROXICODONE 2.5 MG PO (20:30)
[2023-11-03 21:09] LABS: Glucose - Point of Care 105 mg/dl (70-99)
[2023-11-03] MEDS: ANCEF 5 IV (21:13)
[2023-11-03] MEDS: NEURONTIN 100 MG PO (22:04)
[2023-11-03] MEDS: TYLENOL 1000 MG PO (22:04)
[2023-11-03] MEDS: XALATAN OPHTHALMIC SOLUTION 1 DROP BOTH EYES (22:05)
[2023-11-03 22:59] LABS: Glucose - Point of Care 98 mg/dl (70-99)
[2023-11-04] VITALS (27 sets, daily range): BP systolic 85–127; BP diastolic 46–65; PULSE 65; O2SAT 96–97; BMI 23.6
--- NOTE | 2023-11-04 | PTCARENOTE ---
Pt assessment unchanged; SB on monitor with RBBB, VSS; pt resting comfortably in bed; right radial A-line has become position with a poor waveform, CVPA made aware, on going trouble shooting, will follow cuff BP from hear on out. call chappell within
reach; will continue to monitor.
[2023-11-04 01:05] LABS: Glucose - Point of Care 109 mg/dl (70-99)
--- NOTE | 2023-11-04 01:15 | PTCARENOTE ---
Right radial A-line continue to have a poor waveform and blood return; A-line was removed per CVPA; will continue to monitor.
[2023-11-04 03:08] LABS: Glucose - Point of Care 99 mg/dl (70-99)
[2023-11-04] MEDS: LR 250 IV (03:39)
[2023-11-04 03:42] LABS: Hematocrit 36.2 % (39.0-52.0); Hemoglobin 12.6 g/dL (13.0-18.0); Mean Corp Hgb Conc. 34.8 g/dL (33.0-37.0); Mean Corpuscular Hgb 32.6 pg (27.0-31.0); Mean Corpuscular Volume 93.8 fL (80.0-94.0); Mean Platelet Volume 10.5 fL (7.4-10.4); Platelet Count 151 10^3/uL (130-400); Red Blood Cell Count 3.86 10^6/uL (4.70-6.10); White Blood Cell Count 15.9 10^3/uL (4.8-10.8)
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
[2023-11-04 03:58] LABS: Glucose - Point of Care 97 mg/dl (70-99)
[2023-11-04] MEDS: LEVOPHED 250 IV (03:58)
--- NOTE | 2023-11-04 04:00 | PTCARENOTE ---
Pt assessment unchanged; SB with RBBB on monitor, VSS; Labs drawn and sent; EKG obtained; CHG bath, new tele leads, and new gown provided; pt's urine output has dropped over the past two hours, LR ordered by CVPA; call chappell within reach; will
continue to monitor.
[2023-11-04 04:07] LABS: ALT (SGPT) 21 U/L (0-50); AST (SGOT) 72 U/L (17-59); Albumin 3.3 g/dl (3.5-5.0); Alkaline Phosphatase 41 U/L (38-126); Blood Urea Nitrogen 24 mg/dl (9-20); Carbon Dioxide 24 mmol/L (22-30); Chloride 110 mmol/L (98-107); Estimated Creatinine Clearance 62 ml/min; Glucose 91 mg/dl (70-99); Magnesium 2.1 mg/dl (1.6-2.3); Potassium 4.1 mmol/L (3.5-5.1); Sodium 138 mmol/L (135-145); Total Bilirubin 3.9 mg/dl (0.2-1.3); Total Protein 5.2 g/dl (6.3-8.2); eGFR > 60.00
[2023-11-04] MEDS: FLOMAX 0.400000000000000022 MG PO (04:25)
[2023-11-04] MEDS: ANCEF 5 IV ×2 (05:04→13:47)
[2023-11-04] MEDS: TYLENOL 1000 MG PO ×3 (05:04→22:02)
[2023-11-04 05:07] LABS: Glucose - Point of Care 104 mg/dl (70-99)
[2023-11-04 06:10] LABS: Glucose - Point of Care 102 mg/dl (70-99)
[2023-11-04 07:59] LABS: Glucose - Point of Care 117 mg/dl (70-99)
[2023-11-04] MEDS: LIDOCAINE 4% PATCH 1 PATCH TOPICAL (08:01)
[2023-11-04] MEDS: LOW STRENGTH ASPIRIN 81 MG PO (08:02)
[2023-11-04] MEDS: MAGNESIUM OXIDE 500 MG PO ×2 (08:02→20:24)
[2023-11-04] MEDS: LOPRESSOR 12.5 MG PO ×2 (08:02→20:25)
[2023-11-04] MEDS: PROTONIX 40 MG PO (08:02)
[2023-11-04] MEDS: PLAVIX 75 MG PO (08:02)
[2023-11-04] MEDS: SENOKOT-S 1 TABLET PO ×2 (08:02→20:25)
[2023-11-04] MEDS: NEURONTIN 100 MG PO ×3 (08:02→22:02)
[2023-11-04] MEDS: PACERONE 200 MG PO ×3 (08:02→22:03)
[2023-11-04] MEDS: TRUSOPT 2% OPHTHALMIC SOLUTION 1 DROP BOTH EYES ×2 (08:03→20:25)
[2023-11-04] MEDS: BACTROBAN 2% OINTMENT 1 APPLIC NASAL ×2 (08:03→20:25)
--- NOTE | 2023-11-04 08:45 | PTCARENOTE ---
Assumed care of patient at 0700. Pt is awake, alert, and oriented. No complaints of pain at this time. Pt remains SR with HR 60's. BP 108/55 MAP 70. Audible rub. AV wire in place set to VVI rate 45, output 12. Mediastinal and left pleural chest
tubes in place, no sign of air leak or crepitus, drainage red in color. Pulse oximetry 97% on room air. Gonzáles catheter removed at 0830, due to void. Midsternal incision approximated with surgical adhesive, Right leg incision rissa wrap in place. Right
IJ cordis with slick in place with KVO. Pt remains on insulin gtt per glycemic protocol.
[2023-11-04 09:59] LABS: Glucose - Point of Care 116 mg/dl (70-99)
--- NOTE | 2023-11-04 10:53 | W.PN.CARDCBS ---
Addendum entered and electronically signed by Dano Armas MD 11/04/23 12:44:
I saw and examined the patient.
The SENIOR INTERNET SALES CONSULTANT or PA's note was reviewed and I agree with the note.
Comment: General: Well developed, well nourished in NAD.
Neck: Supple, no JVD, HJR, carotids +2 B/L, no bruits bilaterally.
Heart: Non displaced PMI, RRR, no murmurs, No S3, S4, no rubs.
Lungs: Scattered rhonchi
Sternal dressings noted
Extremities: No clubbing, cyanosis or edema bilaterally.
Neuro: Grossly nonfocal, awake, alert and oriented x3.
Stable cardiology status. Remains in sinus rhythm. Continue aspirin and Plavix given non-STEMI. Discussed with CT surgery.
Original Note:
Today's Communication / Plan
-
continue post operative care
doing well
continue asa, plavix given NSTEMI on presentation
Impression / Plan
-
PCP: Dr. David Dasilva
Cardiology: Dr. Armas
Impression:
NSTEMI, peak Troponin 0.2
Newly diagnosed ICM EF 45% by echo 11/01/23
Chest pain
CAD
s/p 2.5 mm and 2.5 mm Xience to prox and mid LAD and PTCA alone of Diag-3 on 04/04/12
s/p 3 mm Xience to mid RCA 05/01/12
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
s/p CABG with WHALEN to LAD, SVG to PDA/PVBR, SVG to OM and SVG to Ramus 11/03/23
s/p FAB clip 11/03/23
h/o probably out of hospital cardiac arrest treated with bystander CPR and ROSC 04/2012
HTN
Hyperlipidemia
Echo 04/05/12: EF 55-60%, mild MR, mild TR
Echo 11/01/23: EF 45-50%, hypokinesis of the mid to distal anterior wall and anteroseptum as well as apical cap, mild TR with PAP 35-40 mmHg
Plan:
-s/p CABG with WHALEN to LAD, SVG to PDA/PVBR, SVG to OM and SVG to Ramus, FAB clip 11/03/23
-doing very well
-off pressors
-in SR with known bifascicular block by EKG 11/03
-Troponin peaked at 0.2, managed as a NSTEMI. continue DAPT with aspirin and Plavix.
-continue post op care
-EF was newly reduced at 45% by echo 11/01/23. Post-op intra-op EDUARDO with EF up to 55%.
-Eventually restart outpatient dose of valsartan 160 mg daily or lower dose if needed
-Patient was not taking a BB prior to admission due to resting sinus bradycardia. Post-CABG will try to add low dose Coreg or Toprol XL given mild EF reduction preop
-LDL 43. Cont outpatient dose of atorvastatin 20 mg daily.
-HgbA1c is 5.7% which is consistent with prediabetes
-continue OOB/IS as able.
-d/w nursing
HPI: Patient came to [facility] yesterday from his PCP's office with recent h/o chest pain and cardiology is now consulted. Patient has a h/o probably out of hospital cardiac arrest treated with bystander CPR in 2011 with ROSC at the scene. In patient
had a stress test followed by cath that showed LAD and RCA disease. Patient had LAD PCI and PTCA alone of Diag-3 initially and then returned electively as an outpatient for the RCA intervention 3 weeks later. Since then patient has continued with
his avid cycling and bikes 45 miles at a time. He says that he was in [place] in July and August and was cycling without chest pain. About 2 weeks ago he started to on a ride and within a mile he had pain in his jaw that radiated to his neck
then shoulders then chest. Pain resolved with rest. He tried riding again and pain recurred. He says that pain has been happening with less and less activity, but no resting pain. He was seeing his PCP for a routine office visit last night and
mentioned the chest pain and was referred to [facility]. He has been pain free since admission, but his initial Troponin was 0.125 so he was started on Heparin gtt and admitted.
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
Subjective
Date of Service: November 04, 2023
doing well. with minimal complaints this AM
Objective
Labs:
11/04/23 03:07
11/04/23 03:07
Labs
Hgb 12.6 g/dL (13.0-18.0) L 11/04/23 03:07
Hct 36.2 % (39.0-52.0) L 11/04/23 03:07
Plt Count 151 10^3/uL (130-400) 11/04/23 03:07
PT 18.1 Sec (11.4-14.6) H 11/03/23 14:17
INR 1.49 11/03/23 14:17
APTT 34.8 Sec (23.4-35.0) 11/03/23 14:17
Sodium 138 mmol/L (135-145) 11/04/23 03:07
Potassium 4.1 mmol/L (3.5-5.1) 11/04/23 03:07
BUN 24 mg/dl (9-20) H 11/04/23 03:07
Creatinine 0.9 mg/dL (0.7-1.3) 11/04/23 03:07
Glucose 91 mg/dl (70-99) 11/04/23 03:07
Vital Signs and I&O:
Vital Signs
Temp Pulse Resp BP Pulse Ox
98.8 F 63 18 108/55 97
11/04/23 06:00 11/04/23 10:00 11/04/23 08:00 11/04/23 08:00 11/04/23 10:13
Vital Signs
Temp Pulse Resp BP Pulse Ox
98.8 F 63 18 108/55 97
11/04/23 06:00 11/04/23 10:00 11/04/23 08:00 11/04/23 08:00 11/04/23 10:13
Intake & Output
11/02/23 11/03/23 11/04/23 11/05/23
07:59 07:59 07:59 07:59
Intake Total 810 / 810 720 / 720 1474.8 / 1474.8
Output Total 850 / 850 700 / 700 1170 / 1170 35 / 35
Balance -40 / -40 20 / 20 304.8 / 304.8 -35 / -35
Physical Exam
Physical Exam
GEN: No distress, awake, alert, oriented x3. sitting in chair
HEENT: supple, anicteric, mmm, eomi
LUNGS: few crackles B/L bases, no wheezes
CV: Reg, S1/S2, no murmur
EXT: No cyanosis, clubbing. trace edema of B/L LE
NEURO: Gross non-focal
SKIN: Warm, pink, dry. No rash. Sternotomy incision c/d/i.
--- NOTE | 2023-11-04 10:54 | W.PN.ANS.POP ---
Anesthesia Post Operative
- Anesthesia Post Op Note
Vital Signs Stable-See Nursing Note: Yes
Airway Patent: Yes
Adequate Pain Control: Yes
Change in Mental Status: No
Current Postoperative Nausea & Vomiting: No
Anesthesia Complications: No
General Anesthetic Recall: No
Unplanned Admission: No
Post Op Hydration Adequate: Yes
- -
Pt awake and alert, OOB to chair with no anesthesia related c/o at time of post op visit.
[2023-11-04 12:15] LABS: Glucose - Point of Care 97 mg/dl (70-99)
--- NOTE | 2023-11-04 12:30 | PTCARENOTE ---
Right IJ slick d/c'd. Mediastinal chest tubes d/c'd. Pleural chest tube remains in place. Pt ambulated saeed with cardiac rehab. Pt remains SR with HR 60's. BP 95/54 MAP 67.
[2023-11-04] MEDS: NSS IV (13:13)
--- NOTE | 2023-11-04 13:30 | W.PN.INTV ---
Today's Communication / Plan
Recommendations
Continue postoperative care
Follow chest tube output
Follow H&H
Increase activity as able
Analgesia
Sign off
Assessment
-
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 Neville
Postoperative mechanical ventilation
Postoperative anemia
-Conditions present prior admission:
Prior history of coronary disease with a stent in 2011
Hypertension
Hypercholesterolemia
Assessment and plan:
Extubated successfully
On low rate supplemental oxygen
Encourage incentive spirometer
Increase activity as able.
Continue analgesia with narcotics as needed.
Patient feels tired
Anemia noted-no evidence of acute bleeding
Follow H&H serially
Hemodynamics -stable, off vasopressors.
Renal function normal.
Gonzáles urinary output.
Chest tube with no excessive drainage-no air leak.
Chest x-ray reviewed: With no pneumothorax or fluid collections.
Advance diet as able.
Head of the bed elevation
Glycemic control per protocol
DVT prophylaxis when safe from the surgical perspective.
Patient has been transferred to telemetry.
Critical care team will sign off.
Subjective Dataa
Subjective Data
Date of Service:
Date of Service: November 04, 2023
Chief Complaint: Wireless Sales Associate Follow Up (Status post coronary artery bypass)
Subjective:
No significant overnight issues
No significant complaints this morning
On low rate supplemental oxygen
Review of Systems
General: Fever (n)
Cardiopulmonary: Dyspnea (n), Cough (n) and Sputum Production (n)
GI: Abdominal Pain (n)
Objective Data
Data Reviewed
Vital Signs / I&O / Oxygen:
Vital Signs
Temp Pulse Resp BP Pulse Ox
97.9 F 68 18 95/54 97
11/04/23 12:11 11/04/23 12:11 11/04/23 12:11 11/04/23 12:00 11/04/23 12:11
Intake and Output
11/03/23 11/04/23 11/05/23
06:59 06:59 06:59
Intake Total 720 / 720 1454.1 / 1474.8 96.2 / 96.2
Output Total 700 / 700 1150 / 1150 75 / 75
Balance 20 / 20 304.1 / 324.8 21.2 / 21.2
SaO2 [CPAP] 96
SaO2 [SIMV] 98
SaO2 97
Nasal Cannula flow liters per 2
minute
Physical Exam
General: Respiratory Distress (n) and Comfortable
HEENT: Normocephalic
Cardiovascular: S1-S2
Respiratory: Clear and Chest Tube (No further leak or excessive drainage)
GI: Soft and Non Distended
Neurology: Awake
Labs/Micro/Reports
Lab Data
11/04/23 03:07
11/04/23 03:07
Laboratory Results
11/03/23 11/03/23
14:17 17:30
PT 18.1 H
INR 1.49
APTT 34.8
pH 7.36 7.35
pCO2 38 36
pO2 144 H 140 H
HCO3 21.5 19.9 L
O2 Delivery Level Vent
Microbiology
11/03/23 09:23 Urine Urine Culture - Final
NO GROWTH
[2023-11-04 13:49] LABS: Glucose - Point of Care 224 mg/dl (70-99)
[2023-11-04 14:35] LABS: Glucose - Point of Care 142 mg/dl (70-99)
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
--- NOTE | 2023-11-04 16:15 | PTCARENOTE ---
Left pleural chest tube to bulb. AV wires insulated. Pt remains SR HR 70's. BP 113/56 MAP 73. Pt OOB in chair most of the day, took a brief rest in bed this afternoon.
[2023-11-04] MEDS: LIPITOR 20 MG PO (17:18)
--- NOTE | 2023-11-04 20:20 | PTCARENOTE ---
Assumed care of patient at 1900. Patient found OOB in chair with spouse at bedside at time of assessment. Patient is AOx4, follows commands appropriately, moves all extremities. Lung sounds are diminished in the bases, patient is on RA saO2 at 95%,
there is a L pleural chest tube in place to bulb suction. Patient has a regular rate and rhythm, there is a slight rub audible on auscultation, and patient is SR on the monitor with RBBB and PACs. Patient has normal palpable pulses and no edema.
Patient has a soft notender abdomen with active BS no post op BM at this time, patient is voiding dark figueroa urine in bathroom. Patient has R IJ cordis receiving KVO and L AC PIV. There is asternal incision approx with surg adhesive AUTOMOTIVE SALES EXECUTIVE, a R groin
puncture approx with surg adhesive HARSHIL, a RLE incision approx with surg adhesive HARSHIL. VSS. Patient has no complaints at this time.
[2023-11-04] MEDS: XALATAN OPHTHALMIC SOLUTION 1 DROP BOTH EYES (22:03)
[2023-11-05] VITALS (18 sets, daily range): BP systolic 79–119; BP diastolic 45–76; PULSE 71–76; O2SAT 94–95; BMI 24.1
--- NOTE | 2023-11-05 01:15 | PTCARENOTE ---
During hourly rounds patient found awake in bed. Patient reports being distressed due to lack sleep 2/2 loud environment and pain. This RN provided comforting reassurance. Quiet environment facilitated. Pain addressed via medication see SEP. Vitals
stable at this time. Patient has no other complaints.
--- NOTE | 2023-11-05 01:22 | PTCARENOTE ---
Patient reassessed. VSS. No complaints at this time.
[2023-11-05] MEDS: ROXICODONE 5 MG PO (01:30)
[2023-11-05] MEDS: FLEXERIL 5 MG PO (05:00)
[2023-11-05] MEDS: TYLENOL 1000 MG PO ×3 (05:00→22:04)
--- NOTE | 2023-11-05 05:00 | PTCARENOTE ---
Patient reassessed. VSS. AM labs obtained. Patient's bulb fell off this morning replaced with clean bulb. Patient c/o lack of sleep, fatigue, exhaustion will encourage quiet environment and sleep. Remains SR with BBB and PACs on the monitor.
[2023-11-05 05:27] LABS: Hematocrit 35.5 % (39.0-52.0); Hemoglobin 12.2 g/dL (13.0-18.0); Mean Corp Hgb Conc. 34.4 g/dL (33.0-37.0); Mean Corpuscular Hgb 32.4 pg (27.0-31.0); Mean Corpuscular Volume 94.4 fL (80.0-94.0); Mean Platelet Volume 10.5 fL (7.4-10.4); Platelet Count 142 10^3/uL (130-400); Red Blood Cell Count 3.76 10^6/uL (4.70-6.10); Red Cell Dist. Width 13.2 % (11.5-14.5); White Blood Cell Count 14.2 10^3/uL (4.8-10.8)
[2023-11-05 06:02] LABS: ALT (SGPT) 17 U/L (0-50); AST (SGOT) 51 U/L (17-59); Albumin 3.1 g/dl (3.5-5.0); Alkaline Phosphatase 56 U/L (38-126); Blood Urea Nitrogen 34 mg/dl (9-20); Carbon Dioxide 23 mmol/L (22-30); Chloride 104 mmol/L (98-107); Direct Bilirubin 0.2 mg/dl (0.0-0.4); Estimated Creatinine Clearance 63 ml/min; Glucose 136 mg/dl (70-99); Magnesium 1.9 mg/dl (1.6-2.3); Potassium 4.2 mmol/L (3.5-5.1); Sodium 134 mmol/L (135-145); Total Bilirubin 2.5 mg/dl (0.2-1.3); Total Protein 5.1 g/dl (6.3-8.2); eGFR > 60.00
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
--- NOTE | 2023-11-05 07:30 | PTCARENOTE ---
Received pt from material handler 1st shift RN; pt AAOX3 and resting comfortably in bed; NSR Right BBB on monitor and VSS; RIJ Cordis and PIV x1 all patent; Epicardial wires insulated; CV QUANTITATIVE RESEARCHER at bedside Epicardial wires cut; Lungs diminished; IS to 1000; Left
Pleural Chest tube to bulb and removed by RN and CV QUANTITATIVE RESEARCHER; positive bowel sounds; pt voiding clear yellow urine; palpable pulses throughout; no edema noted; all surgical site C/D/I; see nursing documentation for details.
[2023-11-05] MEDS: LASIX 40 MG IV (08:01)
[2023-11-05] MEDS: BACTROBAN 2% OINTMENT 1 APPLIC NASAL ×2 (08:01→19:56)
[2023-11-05] MEDS: LIDOCAINE 4% PATCH 1 PATCH TOPICAL (08:01)
[2023-11-05] MEDS: PROTONIX 40 MG PO (08:01)
[2023-11-05] MEDS: MAGNESIUM OXIDE 500 MG PO ×2 (08:02→19:55)
[2023-11-05] MEDS: TORADOL 15 MG IV ×3 (08:02→19:55)
[2023-11-05] MEDS: LOPRESSOR 12.5 MG PO (08:02)
[2023-11-05] MEDS: PACERONE 200 MG PO (08:02)
[2023-11-05] MEDS: PLAVIX 75 MG PO (08:02)
[2023-11-05] MEDS: NEURONTIN 100 MG PO ×3 (08:02→22:04)
[2023-11-05] MEDS: SENOKOT-S 1 TABLET PO (08:02)
[2023-11-05] MEDS: LOW STRENGTH ASPIRIN 81 MG PO (08:02)
[2023-11-05] MEDS: FLOMAX 0.400000000000000022 MG PO (08:03)
[2023-11-05] MEDS: TRUSOPT 2% OPHTHALMIC SOLUTION 1 DROP BOTH EYES ×2 (08:04→19:56)
[2023-11-05 11:18] LABS: Glucose - Point of Care 138 mg/dl (70-99)
--- NOTE | 2023-11-05 11:27 | W.PN.UPDATE ---
Update Note
Progress Note Update
Called to see patient who was found on floor by nurse after ambulating from bathroom. Patient states did not hit head. Patient assisted to sitting position and had brief vagal episode (less than 30 seconds). Patient was assisted back to bed by
myself and nursing staff. Blood glucose was 138. Blood pressure was 92/52. Beta-yaneli, amiodarone, Flomax were held. EKG reported sinus rhythm with bifascicular block which was unchanged from prior EKG on 11/03. Incident was discussed with
[place]bloom and orthostatic pressures were ordered.
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
--- NOTE | 2023-11-05 11:45 | PTCARENOTE ---
[place] something fall onto floor, looked into pt room and pt on floor; pt stated 'felt dizzy and does not remember falling onto floor'; CVNP and RNs with pt, pt assisted to sitting position, pt became lethargic, pale and slightly diaphoretic; pt
vagal in front of staff, staff lifted pt back to bed, Vital signs, ECG, blood sugar obtained; NSR on monitor; Flatwork Ironer and MD updated; NSS 250mls IV Bolus given; no further testing performed.
[2023-11-05] MEDS: NSS 250 IV (11:57)
[2023-11-05] MEDS: NSS 500 IV (13:16)
--- NOTE | 2023-11-05 13:19 | PTCARENOTE ---
Assessment unchanged; NSR Right BBB on monitor and VSS; pt resting comfortably in chair, pt instructed to ring call chappell to get OOB; at bedside.
[2023-11-05] MEDS: LR 250 IV (14:58)
--- NOTE | 2023-11-05 16:12 | PTCARENOTE ---
Assessment unchanged; NSR Right BBB on monitor and VSS.
[2023-11-05] MEDS: LIPITOR 20 MG PO (17:13)
[2023-11-05] MEDS: SENOKOT-S PO (19:56)
[2023-11-05] MEDS: XALATAN OPHTHALMIC SOLUTION 1 DROP BOTH EYES (22:04)
--- NOTE | 2023-11-05 22:56 | PTCARENOTE ---
Assumed care of patient at 1900. Patient found OOB in chair at time of assessment. Patient is AOx4, follows commands appropriately, moves all extremities appropriately. Lung sounds are diminished throughout, patient is on RA saO2 96%. Heart sounds
have a regular rate and rhythm, patient is SR on the monitor with PACs and BBB. Patient has normal palpable pulses and no noted edema. Patient has soft nontender abdomen and active BS throughout all four quadrants. Patient reports large BM during
day. Patient is voiding dark figueroa in urinal. Patient has R IJ cordis receiving KVO. Patient has sternal incision that is approx with surg adhesive SHERIFFS DETECTIVE, R groin puncture approx with surg adhesive SHERIFFS DETECTIVE, and RLE incision approx with surg adhesive HARSHIL.
Patient had reported fall during day reinforced need for assistance when ambulating and placed on bed alarm as precaution. VSS. Patient has no complaints at this time.
[2023-11-06] VITALS (8 sets, daily range): BP systolic 87–145; BP diastolic 44–80; BMI 24.9
--- NOTE | 2023-11-06 01:37 | PTCARENOTE ---
Patient reassessed. VSS. No complaints at this time. Remains SR with PACs and BBB on the monitor.
[2023-11-06 03:58] LABS: Hematocrit 31.3 % (39.0-52.0); Hemoglobin 11.2 g/dL (13.0-18.0); Mean Corp Hgb Conc. 35.8 g/dL (33.0-37.0); Mean Corpuscular Hgb 33.3 pg (27.0-31.0); Mean Corpuscular Volume 93.2 fL (80.0-94.0); Mean Platelet Volume 10.5 fL (7.4-10.4); Platelet Count 129 10^3/uL (130-400); Red Blood Cell Count 3.36 10^6/uL (4.70-6.10); Red Cell Dist. Width 13.1 % (11.5-14.5); White Blood Cell Count 10.9 10^3/uL (4.8-10.8)
[2023-11-06 04:15] LABS: Blood Urea Nitrogen 40 mg/dl (9-20); Calcium 8.4 mg/dl (8.4-10.2); Carbon Dioxide 25 mmol/L (22-30); Chloride 102 mmol/L (98-107); Estimated Creatinine Clearance 52 ml/min; Glucose 103 mg/dl (70-99); Magnesium 2.4 mg/dl (1.6-2.3); Potassium 4.1 mmol/L (3.5-5.1); Sodium 129 mmol/L (135-145); eGFR > 60.00
--- NOTE | 2023-11-06 04:44 | PTCARENOTE ---
Patient reassessed. VSS. SR with BBB on monitor no PACs at this time. No c/o pain. Patient is stable.
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
[2023-11-06] MEDS: TYLENOL 1000 MG PO ×3 (06:32→22:18)
--- NOTE | 2023-11-06 07:45 | PTCARENOTE ---
Received pt from shift foreman RN; pt AAOx3 and resting comfortably in chair; NSR Right BBB on monitor and VSS; RIJ Cordis and PIV x1 patent; Lungs diminished; IS to 1000; positive bowel sounds; pt voiding clear yellow urine; palpable pulses
throughout; no edema noted; surgical sites C/D/I; see nursing documentation for further details.
[2023-11-06] MEDS: LIDOCAINE 4% PATCH 1 PATCH TOPICAL (07:51)
[2023-11-06] MEDS: TRUSOPT 2% OPHTHALMIC SOLUTION 1 DROP BOTH EYES ×2 (07:51→19:28)
[2023-11-06] MEDS: MAGNESIUM OXIDE 500 MG PO ×2 (07:51→19:29)
[2023-11-06] MEDS: LASIX 20 MG IV (07:52)
[2023-11-06] MEDS: LOW STRENGTH ASPIRIN 81 MG PO (07:52)
[2023-11-06] MEDS: PLAVIX 75 MG PO (07:52)
[2023-11-06] MEDS: PROTONIX 40 MG PO (07:52)
[2023-11-06] MEDS: SENOKOT-S 1 TABLET PO ×2 (07:52→19:28)
[2023-11-06] MEDS: NEURONTIN 100 MG PO ×3 (07:52→22:19)
[2023-11-06] MEDS: BACTROBAN 2% OINTMENT 1 APPLIC NASAL ×2 (08:06→19:30)
[2023-11-06] MEDS: LOPRESSOR PO (09:48)
--- NOTE | 2023-11-06 13:06 | PTCARENOTE ---
NSR Right BBB on monitor and VSS; assessment unchanged; family at bedside and updated.
[2023-11-06] MEDS: NSS IV (15:48)
--- NOTE | 2023-11-06 15:52 | PTCARENOTE ---
Assessment unchanged; NSR Right BBB on monitor and VSS.
[2023-11-06] MEDS: LIPITOR 20 MG PO (17:05)
--- NOTE | 2023-11-06 17:19 | PTCARENOTE ---
RIJ Cordis removed per CV HARNESS PULLER order.
[2023-11-06 17:31] LABS: Blood Urea Nitrogen 34 mg/dl (9-20); Calcium 8.5 mg/dl (8.4-10.2); Carbon Dioxide 26 mmol/L (22-30); Chloride 99 mmol/L (98-107); Estimated Creatinine Clearance 52 ml/min; Glucose 99 mg/dl (70-99); Potassium 4.3 mmol/L (3.5-5.1); Sodium 126 mmol/L (135-145); eGFR > 60.00
--- NOTE | 2023-11-06 20:00 | PTCARENOTE ---
assumed care of patient @ 1900. received pt sitting in chair, AOX3. VSS on RA. NSR on tele monitor with RBBB. +PP, - E. lungs clear on room air. +BS. voiding spontaneously. All surgical sites CDI. PIV patent. pt instructed to ring when ambulating
and to not get up by self. call chappell within reach.
[2023-11-06 20:43] LABS: Osmolality Serum 275 mOsm/kg (275-300)
[2023-11-06] MEDS: XALATAN OPHTHALMIC SOLUTION 1 DROP BOTH EYES (22:19)
[2023-11-07] VITALS (16 sets, daily range): BP systolic 72–163; BP diastolic 57–81; PULSE 86; O2SAT 98; BMI 24.7
[2023-11-07 01:49] LABS: Hematocrit 34.4 % (39.0-52.0); Hemoglobin 12.6 g/dL (13.0-18.0); Mean Corp Hgb Conc. 36.6 g/dL (33.0-37.0); Mean Corpuscular Hgb 33.4 pg (27.0-31.0); Mean Corpuscular Volume 91.2 fL (80.0-94.0); Mean Platelet Volume 10.2 fL (7.4-10.4); Platelet Count 145 10^3/uL (130-400); Red Blood Cell Count 3.77 10^6/uL (4.70-6.10); Red Cell Dist. Width 13.1 % (11.5-14.5); White Blood Cell Count 9.1 10^3/uL (4.8-10.8)
[2023-11-07 02:01] LABS: Osmolality Serum 284 mOsm/kg (275-300); Osmolality Urine 227 mOsm/kg (300-900)
[2023-11-07 02:04] LABS: Urine Sodium 6 mmol/L (30-90)
[2023-11-07 02:06] LABS: Blood Urea Nitrogen 32 mg/dl (9-20); Calcium 8.9 mg/dl (8.4-10.2); Carbon Dioxide 25 mmol/L (22-30); Chloride 102 mmol/L (98-107); Estimated Creatinine Clearance 57 ml/min; Glucose 105 mg/dl (70-99); Magnesium 2.3 mg/dl (1.6-2.3); Phosphorus 2.7 mg/dl (2.5-4.5); Potassium 4.4 mmol/L (3.5-5.1); Sodium 131 mmol/L (135-145); eGFR > 60.00
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
[2023-11-07] MEDS: TYLENOL 1000 MG PO ×2 (06:38→13:58)
--- NOTE | 2023-11-07 08:00 | PTCARENOTE ---
pt received from previous RN, oriented, OOB in chair. SR w/ RBBB on the monitor, HR 70-80s. SBP 120s. palpable pulses. pt on RA, 98% POX on RA. lungs clear, +crepitus L clavicle. SQUARE DANCE CALLER aware. IS encouraged. pt abdomen s/n, denies n/v. diet tolerated
well. +BM. voids. sternal incision HARSHIL, approximated. R groin puncture and R leg incision CODING QUALITY COORDINATOR. PIV. see worklist for VS, I&O, and assessment.
[2023-11-07] MEDS: LIDOCAINE 4% PATCH TOPICAL (08:36)
[2023-11-07] MEDS: SENOKOT-S PO (08:36)
[2023-11-07] MEDS: PLAVIX 75 MG PO (08:46)
[2023-11-07] MEDS: PROTONIX 40 MG PO (08:46)
[2023-11-07] MEDS: NEURONTIN 100 MG PO (08:46)
[2023-11-07] MEDS: MAGNESIUM OXIDE 500 MG PO (08:46)
[2023-11-07] MEDS: LOW STRENGTH ASPIRIN 81 MG PO (08:46)
[2023-11-07] MEDS: TRUSOPT 2% OPHTHALMIC SOLUTION 1 DROP BOTH EYES (08:47)
[2023-11-07] MEDS: BACTROBAN 2% OINTMENT 1 APPLIC NASAL (08:47)
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
[2023-11-07] MEDS: TOPROL XL 12.5 MG PO (09:54)
[2023-11-07] MEDS: NSS IV (11:21)
--- NOTE | 2023-11-07 12:01 | PTCARENOTE ---
pt VSS, no changes in assessment. no c/o pain or SOB.
--- NOTE | 2023-11-07 13:51 | PTCARENOTE ---
pt received from Bruna MICHAELS back bandaid. no c/o pain. OOB in chair for lunch.
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
--- NOTE | 2023-11-07 14:24 | CM ---
Reviewed chart. Met with Mr. North to review discharge plans. He states he is feeling well and maybe able to go home soon. He states he ambulated in the hallway today. He ambulated 450 feet today. He states prior to admission he resides with his
significant other in a two story home with two steps to enter. He states he has a first floor set-up. He states prior to admission he was independent with ambulation and adls. He states he does not have any DME in the home. He states his
significant other will be home to assist in his care if needed. We reviewed a home visit by the Cardiothoracic Transitional Care Nurse. He is agreeable to a home visit. Medical work-up in progress. The discharge plan is to return home with his
significant other and a home visit by the Cardiothoracic Transitional Care Nurse when medically stable.
--- NOTE | 2023-11-07 16:07 | PTCARENOTE ---
pt discharged home w/ , discharge instructions reviewed w/ patient and , home meds reviewed. tele and IV dc'd. belongings returned from security. pt showered, dressed self.
== END 2023-11-07 16:30 | disposition home or self-care (01) | DRG 234 ==
LOC: CVICU 19:59
PROVIDERS: Anesthesiology; Clinical Nurse Specialist Family Health; Internal Medicine Interventional Cardiology; Nurse Practitioner; Nurse Practitioner Family; Physician Assistant Medical; Radiology Vascular & Interventional Radiology; ADMITTING PHYSICIAN Internal Medicine; ATTENDING PHYSICIAN Thoracic Surgery (Cardiothoracic Vascular Surgery); CONSULT PHYSICIAN Internal Medicine Critical Care Medicine; EMERGENCY PHYSICIAN Emergency Medicine; FAMILY PHYSICIAN Family Medicine; OTHER PHYSICIAN Internal Medicine Cardiovascular Disease
PROC: B2111ZZ Fluoroscopy of Multiple Coronary Arteries using Low Osmolar Contrast (ICD-10-PCS; 2023-11-01)
PROC: 4A023N7 Measurement of Cardiac Sampling and Pressure, Left Heart, Percutaneous Approach (ICD-10-PCS; 2023-11-01)
PROC: B2151ZZ Fluoroscopy of Left Heart using Low Osmolar Contrast (ICD-10-PCS; 2023-11-01)
PROC: B24BZZ4 Ultrasonography of Heart with Aorta, Transesophageal (ICD-10-PCS; 2023-11-03)
PROC: 06BP4ZZ Excision of Right Saphenous Vein, Percutaneous Endoscopic Approach (ICD-10-PCS; 2023-11-04)
PROC: 021309W Bypass Coronary Artery, Four or More Arteries from Aorta with Autologous Venous Tissue, Open Approach (ICD-10-PCS; 2023-11-04)
PROC: 02100Z9 Bypass Coronary Artery, One Artery from Left Internal Mammary, Open Approach (ICD-10-PCS; 2023-11-04)
PROC: 5A1221Z Performance of Cardiac Output, Continuous (ICD-10-PCS; 2023-11-04)
PROC: 02L70CK Occlusion of Left Atrial Appendage with Extraluminal Device, Open Approach (ICD-10-PCS; 2023-11-04)
PROC: 0W9B3ZZ Drainage of Left Pleural Cavity, Percutaneous Approach (ICD-10-PCS; 2023-11-07)
DX: I21.4 Non-ST elevation (NSTEMI) myocardial infarction (principal); I45.2 Bifascicular block; J91.8 Pleural effusion in other conditions classified elsewhere; D62 Acute posthemorrhagic anemia; J98.11 Atelectasis; I25.10 Atherosclerotic heart disease of native coronary artery without angina pectoris; E78.00 Pure hypercholesterolemia, unspecified; H40.9 Unspecified glaucoma; N40.0 Benign prostatic hyperplasia without lower urinary tract symptoms; I25.5 Ischemic cardiomyopathy; D69.59 Other secondary thrombocytopenia; E86.1 Hypovolemia; I10 Essential (primary) hypertension; Z79.82 Long term (current) use of aspirin; Z79.899 Other long term (current) drug therapy; Z86.74 Personal history of sudden cardiac arrest; Z95.5 Presence of coronary angioplasty implant and graft
CPT/HCPCS: 32555; 71045; 71046; 80048; 80053; 80061; 81003; 81015; 82248; 82330; 82565; 82570; 82805; 82947; 82962; 83036; 83735; 83930; 83935; 84100; 84132; 84300; 84302; 84484; 84520; 85014; 85018; 85025; 85027; 85049; 85610; 85730; 86850; 86900; 86901; 86920; 87086; 93005; 93306; 93312; 93320; 93325; 93458; 93880; 94002; 97163; 97166; 99285; C1713; C1894; P9045; Q9967

== ENCOUNTER 2023-12-29 08:33 | Outpatient (RCR) | payer OTHER, SELFPAY | END 2023-12-29 23:59 | disposition home or self-care (01) | LOC: CRHB 08:33 | PROVIDERS: ATTENDING PHYSICIAN Internal Medicine Cardiovascular Disease | DX: I25.10 Atherosclerotic heart disease of native coronary artery without angina pectoris (principal); Z95.1 Presence of aortocoronary bypass graft; I25.2 Old myocardial infarction | CPT/HCPCS: G0422; G0423 ==

== ENCOUNTER → 2024-11-12 09:47 | Outpatient (REF) | payer OTHER, SELFPAY | LOC: HWRAD 09:47 | PROVIDERS: ATTENDING PHYSICIAN Internal Medicine Cardiovascular Disease; FAMILY PHYSICIAN Family Medicine | DX: R09.89 Other specified symptoms and signs involving the circulatory and respiratory systems (principal) | CPT/HCPCS: 93880 ==